=== PATIENT | female | born 1955 ===

== ENCOUNTER 2018-06-22 22:37 | Inpatient (IN) | payer MEDICARE, MEDICAID ==
--- NOTE | 2018-06-23 01:14 | ED PDOC ---
HPI: Psych/Substance Abuse Time Seen by Provider: 06/22/18 23:22 Chief Complaint (Nursing): Psychiatric Evaluation Chief Complaint (Provider): Psychiatric Evaluation History Per: Patient History/Exam Limitations: no limitations Onset/Duration Of Symptoms: Days (x 1 month) Current Symptoms Are (Timing): Still Present Suicide/Self Injury Attempted (Context): None Associated Symptoms: Anxiety, Depression Additional Complaint(s): 63 year old female with a history of diabetes and hypertension presents to the ED with depression for 1 month. Patient reports feelings of hopelessness. Dr. Topete, her PMD, referred her to the ED for worsening depression. She denies active suicidal plan, but she wants her life to end. Also denies auditory and visual hallucinations. PMD: Dr. Duc Topete Past Medical History Reviewed: Historical Data, Nursing Documentation, Vital Signs Vital Signs: Last Vital Signs Temp 97.9 F 06/22/18 23:12 Pulse 95 H 06/22/18 23:12 Resp 18 06/22/18 23:12 BP 123/77 06/22/18 23:12 Pulse Ox 98 06/22/18 23:12 - Medical History PMH: Anemia, Anxiety, Arthritis, Depression, Gastritis, HTN, Hypercholesterolemia, Mitral Valve Prolapse, Pancreatitis Denies: CHF, COPD, HIV, Hypothyroidism, Chronic Kidney Disease, Rheumatoid Arthritis - Surgical History Surgical History: Appendectomy - Family History Family History: States: Unknown Family Hx - Home Medications Home Medications: Ambulatory Orders Medication Instructions Recorded RX: Atorvastatin [Lipitor] 20 mg PO HS 04/11/17 RX: Losartan [Cozaar] 50 mg PO DAILY 04/11/17 RX: MetFORMIN [glucoPHAGE] 1,000 mg PO BID 04/11/17 RX: Venlafaxine HCl [Venlafaxine 150 mg PO BID 04/11/17 HCl ER] RX: cycloSPORINE [Restasis] 1 drop BOTHEYES Q12H 04/11/17 RX: Multivitamin [Multi-Vitamin 1 tab PO DAILY 04/16/17 Daily] Dulaglutide [Trulicity] 1.5 mg SC QWK 06/23/18 - Allergies Allergies/Adverse Reactions: Allergies Allergy/AdvReac Type Severity Reaction Status Date / Time codeine Allergy RASH Verified 06/23/18 03:11 morphine Allergy RASH Verified 06/23/18 03:11 Penicillins Allergy RASH Verified 06/23/18 03:11 Review of Systems ROS Statement: Except As Marked, All Systems Reviewed And Found Negative Psych: Positive for: Anxiety, Depression. Negative for: Suicidal ideation, Other (hallucinations) Physical Exam - Reviewed Nursing Documentation Reviewed: Yes Vital Signs Reviewed: Yes - Physical Exam Appears: Positive for: No Acute Distress (tearful ) Head Exam: Positive for: ATRAUMATIC, NORMAL INSPECTION, NORMOCEPHALIC Skin: Positive for: Normal Color, Warm, Dry Eye Exam: Positive for: EOMI, Normal appearance, PERRL Neck: Positive for: Normal, Painless ROM, Supple Cardiovascular/Chest: Positive for: Regular Rate, Rhythm. Negative for: Murmur Respiratory: Positive for: Normal Breath Sounds. Negative for: Wheezing, Respiratory Distress Gastrointestinal/Abdominal: Positive for: Normal Exam, Soft. Negative for: Tenderness Extremity: Positive for: Normal ROM (x 4). Negative for: Deformity Neurologic/Psych: Positive for: Alert, Oriented, Mood/Affect (anxious and labile ) - Laboratory Results Result Diagrams: 06/23/18 01:21 06/23/18 01:21 - ECG O2 Sat by Pulse Oximetry: 98 (RA) Pulse Ox Interpretation: Normal Medical Decision Making Medical Decision Makin:29 Impression: 63 year old female with worsening depression Initial Plan: --CBC --CMP --UDS --UA --Urine dip --Alcohol --EKG --Crisis 02:50 --Patient was evaluated by crisis and will be admitted as inpatient for further observation and treatment. Diagnosis is depression as per Dr. Moody. Scribe Attestation: Documented by Dorothy Camacho, acting as a scribe for Landry Shaffer MD Provider Scribe Attestation: All medical record entries made by the Scribe were at my direction and personally dictated by me. I have reviewed the chart and agree that the record accurately reflects my personal performance of the history, physical exam, medical decision making, and the department course for this patient. I have also personally directed, reviewed, and agree with the discharge instructions and disposition. Disposition - Clinical Impression Clinical Impression: Depression - Patient ED Disposition Is Patient to be Admitted: Yes - Disposition Disposition Time: 02:50 Condition: FAIR - Pt Status Changed To: Hospital Disposition Of: Inpatient - Admit Certification Admit to Inpatient:: After my assessment, the patient will require hospitalization for at least two midnights. This is because of the severity of symptoms shown, intensity of services needed, and/or the medical risk in this patient being treated as an outpatient.
[2018-06-23 01:24] LABS: BASO % 0.5 % (0.0-2.0); EOS # 0.1 K/uL (0.0-0.7); EOS % 1.4 % (0.0-4.0); HEMOGLOBIN 12.4 g/dL (12.0-16.0); LYMPH # 2.5 K/uL (1.0-4.3); LYMPH % 33.5 % (20.0-40.0); MEAN CELL VOLUME 89.6 fl (81.0-99.0); MEAN CORPUSCULAR HEMOGLOBIN 29.8 pg (27.0-31.0); MEAN CORPUSCULAR HGB CONC 33.3 g/dL (33.0-37.0); MONO # 0.7 K/uL (0.0-0.8); MONO % 9.4 % (0.0-10.0); NEUT # 4.2 K/uL (1.8-7.0); NEUT % 55.2 % (50.0-75.0); RBC 4.16 Mil/uL (3.80-5.20); RED CELL DISTRIBUTION WIDTH 14.8 % (11.5-14.5); WHITE BLOOD COUNT 7.6 K/uL (4.8-10.8)
[2018-06-23 01:32] LABS: URINE BILIRUBIN NEGATIVE (NEGATIVE); URINE BLOOD NEGATIVE (NEGATIVE); URINE CLARITY SLIGHTY-CLOUDY (Clear); URINE COLOR YELLOW (YELLOW); URINE GLUCOSE (UA) NEG (Normal); URINE LEUKOCYTE ESTERASE NEG Leu/uL (Negative); URINE PROTEIN 30 mg/dL (NEGATIVE); URINE UROBILINOGEN 0.2-1.0 mg/dL (0.2-1.0)
[2018-06-23 01:33] LABS: ALB/GLOB RATIO 1.4 (1.0-2.1); ALBUMIN 4.2 g/dL (3.5-5.0); ALT/SGPT 39 U/L (9-52); AST/SGOT 38 U/L (14-36); BLOOD UREA NITROGEN 21 mg/dl (7-17); CALCIUM 9.5 mg/dL (8.4-10.2); GFR NON-AFRICAN AMERICAN 56
[2018-06-23 01:42] LABS: BARBITURATES, UR NEGATIVE (NEGATIVE); BENZODIAZEPINES, UR POSITIVE (NEGATIVE); OPIATES, UR NEGATIVE (NEGATIVE); PHENCYCLIDINE, UR NEGATIVE (NEGATIVE)
[2018-06-23 03:40] VITALS: O2SAT 98
[2018-06-23] MEDS ORDERED: Bismuth Subsalicylate 262 mg/15 ml Sus (240 ml) PO PRN (04:00)
[2018-06-23] MEDS ORDERED: Magnesium Hydroxide Susp 30 ml UD PO PRN (04:00)
--- NOTE | 2018-06-23 05:21 | PCM.BM ---
<Americo Ahuja - Last Filed: 06/23/18 05:19> Treatment Plan Problems - Problems identified on initial assessmt Hopelessness/Helplessness Date Initiated: 06/23/18 Time Initiated: 05:20 Assessment reference: NA Status: Active Treatment assets and liabiliti Patient Assests: adapts well, cooperative, good support system, negotiates basic needs Patient Liabilities: medical problems, other - Milieu Protocol Maintain good personal hygiene: daily Encourage regular showers, daily Remind patient to perform daily oral care, daily Assist patient to perform ADL's Conduct patient checks and document Observation sheet: Q15 minutes Maintain personal safety: every shift Educate patient to report safety concerns to staff, every shift Monitor environment for contraband/sharps Medication safety: Monitor for expected outcome, potential side effects: every shift, Assess barriers to learning: every shift, Assess readiness for medication education: every shift <Akila Moody - Last Filed: 06/23/18 09:55> - Diagnosis (1) Major depressive disorder Status: Acute Interventions: Medication management, Individual and group therapy, Psychoeducation 06/23/18 09:55 <Prerna Wright - Last Filed: 06/23/18 15:26> Family Contact Family involvement: Patient does not wish Family/SO involvement - Goals for Treatment Patient goals for treatment: Pt to be encouraged to attend activity and clinical groups 3-5x per week to identify at least 2 contributing factors to depression and suicide attempt. Psycho-education to be provided to patient/family regarding benefits of medications and treatment adherence. Pt to be encouraged to participate in group milieu to develop effective coping skills to reduce depression and free of suicide ideation. Coordinate discharge resource needs by providing referral for psychiatric treatment follow up in the community. Discharge/Continuing Care - Education Needs Education Needs: Patient Medication, Patient Diagnosis/Disease Process, Patient Coping Skills, Patient Community resources, Patient Activities of Daily Living, Patient Health Practices/Safety, Patient Personal Hygiene/Grooming, Patient Aftercare Safety Plan - Discharge Discharge Criteria: Tolerates medication w/o severe side effects, Free of Suicidal thoughts, Normal sleep pattern, Ability to care for self, Reduction of target symptoms, Other (Free of Depressive Symptoms) Discharge to:: Home, With Family - Additional Comments 06/23/18 15:21 Pt seen and discussed in team meeting. Reason for hospitalization reviewed and discussed. Pt reported being referred to the ED due worsened depression and anxiety. Pt reported crying episodes, lack of initiation and motivation, and easily irritable. Pt reported feeling lonely; although she has a relationship with her family. Pt reported she feels as if her children do not like her and do not care about her. Pt reported AH telling her "not do it and then a funny voice." Pt described the voice as a child voice, unknown to pt it's telling her "you need to be with your mother." Pt reported her mother is . Pt reported she last experienced AH on Thursday. Pt denied acute SI and HI; however, reported passive wishes stating "i only think to meet my mother when i'm in those moods." Pt reported hx of 2 prior suicide attempts. Pt reported she is no linked to a psychiatrist at the present time and seeks tx with PMD, Dr. Yoselyn MD. Pt's social and medical issues reviewed. Pt's medications reviewed. Tx plan reviewed and pt verbalized agreement. SW to continue to follow case and obtain collateral information. - Treatment Team Participation Discussed with Family/SO: No Was Patient/Family/SO present at Treatment Team Meeting: Yes
--- NOTE | 2018-06-23 07:04 | CARD ---
APPROVED REPORT Date of service: 06/23/2018 EKG Measurement Heart [id number] <Conclusion> Normal sinus rhythm with sinus arrhythmia Normal ECG
--- NOTE | 2018-06-23 08:33 | RAD ---
Date of service: 06/23/2018 HISTORY: admit COMPARISON: No prior. FINDINGS: LUNGS: No active pulmonary disease. PLEURA: No significant pleural effusion identified, no pneumothorax apparent. CARDIOVASCULAR: No aortic atherosclerotic calcification present. Mild tortuosity of the thoracic aorta. Normal cardiac size. No pulmonary vascular congestion. OSSEOUS STRUCTURES: Thoracic spondylosis. Bilateral shoulder arthrosis. VISUALIZED UPPER ABDOMEN: Normal. OTHER FINDINGS: None. IMPRESSION: No acute cardiopulmonary pathology suspect.
[2018-06-23 08:39] LABS: IRON 66 ug/dL (37-170)
[2018-06-23 08:48] LABS: % IRON SATURATION 16 % (20-55); TOTAL IRON BINDING CAPACITY 408 ug/dL (250-450)
[2018-06-23 08:59] LABS: T4 6.44 ug/dl (5.5-11.0)
--- NOTE | 2018-06-23 09:55 | PCM.PSYCH ---
Initial Psychiatric Evaluation - Initial Psychiatric Evaluation Type of Admission: Voluntary Legal Status: Capacity Chief Complaint (in patient's own words): "I'm depressed." Patient's Reaction to Hospitalization: HPI: 63 yo [place] female, w/ h/o depression, presents w/ worsening depression, auditory hallucinations of a child telling her "you need to be with your mother ()", intermittent suicidal ideation w/o plan, sleep/appetite dis turbances, anhedonia, hopelessness and low motivation. PPHx: H/o depression and anxiety; taken off of Effexor 300 mg and started on Lexapro 10 mg Daily 1 week ago. History of 2 suicide attempts by overdoses on medication (19 yrs old, 20s). Receives psychiatric treatment from PMD. PMHx: HTN, HLD, DM, chronic back pain ALL: Codeine, Morphine, PCN SH: From [place], 3 adult children, in 3rd marriage, unemployed on disability, denies drugs/etoh/cig use Current Medications: Active Medications Generic Name Dose Route Start Last Admin Trade Name Freq PRN Reason Stop Dose Admin Acetaminophen 650 mg 06/23/18 04:00 Tylenol 325mg Tab PO Q4 PRN Pain, moderate (4-7) Al Hydrox/Mg Hydrox/Simethicone 30 ml 06/23/18 04:00 Maalox Plus 30 Ml PO Q4 PRN Dyspepsia Atorvastatin Calcium 20 mg 06/23/18 22:00 Lipitor PO HS LEYLA Bismuth Subsalicylate 524 mg 06/23/18 04:00 Pepto-Bismol PO Q4 PRN Diarrhea Home Med 1 drop 06/23/18 08:30 Cyclosporine [Restasis] BOTHEYES Q12H LEYLA Home Med 1.5 mg 06/27/18 09:00 Dulaglutide [Trulicity] SC SUN LEYLA Lorazepam 0.5 mg 06/23/18 04:00 Ativan PO 07/07/18 04:01 HS PRN Insomnia Lorazepam 0.5 mg 06/23/18 04:00 Ativan PO 07/07/18 04:01 Q6 PRN Anixety/Agitation Losartan Potassium 50 mg 06/23/18 09:00 Cozaar PO DAILY LEYLA Magnesium Hydroxide 30 ml 06/23/18 04:00 Milk Of Magnesia PO HS PRN Constipation Metformin HCl 1,000 mg 06/23/18 08:30 Glucophage PO BIDWM [facility] Multivitamins/Minerals 1 tab 06/23/18 09:00 Therapeutic-M Tab PO DAILY [facility] Past Psychiatric History - Past Psychiatric History Pertinent Medical Hx (Current Medical&Sleep Prob, Allergies): Allergies Allergy/AdvReac Type Severity Reaction Status Date / Time codeine Allergy RASH Verified 06/23/18 03:11 morphine Allergy RASH Verified 06/23/18 03:11 Penicillins Allergy RASH Verified 06/23/18 03:11 Atorvastatin [Lipitor] 20 mg PO HS 04/11/17 Losartan [Cozaar] 50 mg PO DAILY 04/11/17 MetFORMIN [glucoPHAGE] 1,000 mg PO BID 04/11/17 Venlafaxine HCl [Venlafaxine HCl ER] 150 mg PO BID 04/11/17 cycloSPORINE [Restasis] 1 drop BOTHEYES Q12H 04/11/17 Multivitamin [Multi-Vitamin Daily] 1 tab PO DAILY 04/16/17 Dulaglutide [Trulicity] 1.5 mg SC QWK 06/23/18 Review of Systems - Psychiatric Psychiatric: As Per HPI, Abnormal Sleep Pattern, Anhedonia, Anxiety, Auditory Hallucinations, Change in Appetite, Depression, Difficulty Concentrating, Hallucinations, Hopelessness, Irritability, Mood Swings, Panic Attacks, Suicidal Ideation Mental Status Examination - Personal Presentation Personal Presentation: Looks stated age - Affect Affect: Depressed, Other (Tearful) - Motor Activity Motor Activity: Calm - Reliability in Providing Information Reliability in Providing Information: Fair - Speech Speech: Organized - Mood Mood: Depressed, Anxious - Formal Thought Process Formal Thought Process: No Impairment - Obsessions/Compulsions Obsessions: No Compulsions: No - Cognitive Functions Orientation: Person, Place, Situation, Time Sensorium: Alert Attention/Concentration: Attentive Estimate of Intelligence: Average Judgement: Intact, as evidence by: Insight regarding need for hospitalization Memory: Recent intact, as evidence by: Ability to recall events of the day, Remote intact, as evidenced by: Abilit to recall sig. life events, Remote intact, as evidenced by: Ability to recall historical events - Risk Risk: Suicidal, Diminished functioning - Strength & Assets Inventory Strength & Assets Inventory: Family support, Cooperative DSM 5 DX - DSM 5 DSM 5 Diagnosis: Major Depressive Disorder w/ Psychotic Features; Generalized Anxiety Disorder - Recommended/Plan of Treatment Treatment Recommendations and Plan of Treatment: Major Depressive Disorder w/ Psychotic Features; Generalized Anxiety Disorder -Admit to psychiatry unit -Continue Lexapro 10 mg PO Daily -Start Risperdal 0.5 mg PO HS -Medicine consult -Disposition planning -Individual and group therapy Projected ELOS: 5-7 days Discharge Plan and Discharge Criteria: Discharge when patient is psychiatrically stable - Smoking Cessation Smoking Cessation Initiated: No Reason for not providing: Not indicated
[2018-06-23] MEDS: Multivitamin With Minerals Tab PO SCH (11:39)
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
[2018-06-23] MEDS: Patient's Own Med (Cyclosporine [Restasis] 1 DROP) BOTHEYES SCH ×2 (12:19→21:14)
[2018-06-23 19:05] LABS: FOLATE 12.8 ng/mL
[2018-06-23] MEDS: Latanoprost 0.005% Opht SOUTION OU SCH (22:21)
[2018-06-23] MEDS: Alum-Mag Hydrox-Simethicone Susp (30 mL) PO PRN (22:44)
[2018-06-24] MEDS: Patient's Own Med (Cyclosporine [Restasis] 1 DROP) BOTHEYES SCH ×2 (08:08→21:07)
[2018-06-24] MEDS: Multivitamin With Minerals Tab PO SCH (08:09)
--- NOTE | 2018-06-24 09:50 | PCM.PYCHPN ---
Psychiatric Progress Note - Psychiatric Progress Note Patient seen today, length of contact: Pt evaluated, case discussed w/ team, chart reviewed Patient Chief Complaint: "I'm depressed." Problems Identified/Issues Discussed: Pt continues to report feeling depressed, fatigue, poor energy/ poor motivation and continued intermittent suicidal ideation w/o current plan or intent. No current AH/VH/paranoia/delusions. Medication Change: No Medical Record Reviewed: Yes Consults ordered or reviewed: Medicine consult Mental Status Examination - Cognitive Function Orientation: Person, Place, Situation, Time Memory: Intact Attention: WNL Concentration: WNL Association: WN Fund of Knowledge: [facility] Decription of patient's judgement and insights: Fair I/J - Mood Mood: Depressed, Anxious - Affect Affect: Depressed, Other (Tearful) - Speech Speech: Appropriate - Formal Thought Process Formal Thought Process: No Impairment Psychotic Thoughts and Behaviors: NO AH/VH/paranoia/delusions - Suicidal Ideation Suicidal Ideation: Yes - Homicidal Ideation Homicidal Ideation: No Goal/Treatment Plan - Goal/Treatment Plan Need for Continued Stay: Remain at risks for inpatient hospitalization, Severe depression anxiety Progress Toward Problem(s) and Goals/Treatment Plan: Major Depressive Disorder w/ Psychotic Features; Generalized Anxiety Disorder -Continue Lexapro 10 mg PO Daily -Continue Risperdal 0.5 mg PO HS -Medicine consult -Disposition planning -Individual and group therapy Estimated Date of D/C: 06/28/18
[2018-06-24] MEDS: Alum-Mag Hydrox-Simethicone Susp (30 mL) PO PRN ×2 (14:38→22:47)
[2018-06-24] MEDS: Latanoprost 0.005% Opht SOUTION OU SCH (21:08)
[2018-06-25] MEDS: Patient's Own Med (Cyclosporine [Restasis] 1 DROP) BOTHEYES SCH ×2 (08:29→19:40)
[2018-06-25] MEDS: Multivitamin With Minerals Tab PO SCH (08:30)
--- NOTE | 2018-06-25 12:02 | PCM.PYCHPN ---
Psychiatric Progress Note - Psychiatric Progress Note Patient seen today, length of contact: Pt evaluated, case discussed w/ team, chart reviewed Patient Chief Complaint: "I'm depressed." Problems Identified/Issues Discussed: Pt continues to report feeling depressed, w/ fatigue, poor energy/ poor motivation, but denies acute AH/VH/SI/HI. No adverse effects to medications reported. Medication Change: No Medical Record Reviewed: Yes Consults ordered or reviewed: Medicine consult Mental Status Examination - Cognitive Function Orientation: Person, Place, Situation, Time Memory: Intact Attention: WNL Concentration: WNL Association: WNL Fund of Knowledge: [facility] Decription of patient's judgement and insights: Fair I/J - Mood Mood: Depressed, Anxious - Affect Affect: Depressed - Speech Speech: Appropriate - Formal Thought Process Formal Thought Process: No Impairment Psychotic Thoughts and Behaviors: NO AH/VH/paranoia/delusions - Suicidal Ideation Suicidal Ideation: No - Homicidal Ideation Homicidal Ideation: No Goal/Treatment Plan - Goal/Treatment Plan Need for Continued Stay: Remain at risks for inpatient hospitalization, Severe depression anxiety Progress Toward Problem(s) and Goals/Treatment Plan: Major Depressive Disorder w/ Psychotic Features; Generalized Anxiety Disorder -Continue Lexapro 10 mg PO Daily -Continue Risperdal 0.5 mg PO HS -Medicine consult -Disposition planning -Individual and group therapy Estimated Date of D/C: 06/28/18
[2018-06-25] MEDS: Alum-Mag Hydrox-Simethicone Susp (30 mL) PO PRN ×2 (12:15→22:15)
[2018-06-25] MEDS ORDERED: Pantoprazole 40 mg EC Tab PO SCH (12:30)
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
[2018-06-25] MEDS: Naproxen 500 MG TAB PO SCH (16:49)
[2018-06-25] MEDS: Latanoprost 0.005% Opht SOUTION OU SCH (21:09)
[2018-06-25] MEDS: Pantoprazole 40 mg EC Tab PO SCH (21:10)
[2018-06-26] MEDS: Patient's Own Med (Cyclosporine [Restasis] 1 DROP) BOTHEYES SCH ×2 (08:47→20:30)
[2018-06-26] MEDS: Naproxen 500 MG TAB PO SCH ×2 (08:50→21:00)
[2018-06-26] MEDS: Pantoprazole 40 mg EC Tab PO SCH ×2 (08:51→16:42)
[2018-06-26] MEDS: Multivitamin With Minerals Tab PO SCH (08:51)
--- NOTE | 2018-06-26 09:46 | PCM.PYCHPN ---
Psychiatric Progress Note - Psychiatric Progress Note Patient seen today, length of contact: Pt evaluated, case discussed w/ team, chart reviewed Patient Chief Complaint: pt has remained depressed and withdrawn and with c/o fatigue and remains with poor insight and in need of further stabilization. Medication Change: No Medical Record Reviewed: Yes Mental Status Examination - Cognitive Function Orientation: Person, Place, Situation, Time Memory: Intact Attention: WNL Concentration: WNL Association: WNL Fund of Knowledge: WNL - Mood Mood: Depressed, Anxious - Affect Affect: Depressed - Speech Speech: Appropriate - Formal Thought Process Formal Thought Process: No Impairment - Suicidal Ideation Suicidal Ideation: No - Homicidal Ideation Homicidal Ideation: No Goal/Treatment Plan - Goal/Treatment Plan Need for Continued Stay: Remain at risks for inpatient hospitalization, Severe depression anxiety Estimated Date of D/C: 06/28/18
[2018-06-26] MEDS: Latanoprost 0.005% Opht SOUTION OU SCH (21:18)
[2018-06-27] MEDS: Multivitamin With Minerals Tab PO SCH (08:28)
[2018-06-27] MEDS: Patient's Own Med (Cyclosporine [Restasis] 1 DROP) BOTHEYES SCH ×2 (08:28→21:05)
[2018-06-27] MEDS: Naproxen 500 MG TAB PO SCH ×3 (08:34→21:15)
[2018-06-27] MEDS: Pantoprazole 40 mg EC Tab PO SCH ×2 (08:35→17:29)
--- NOTE | 2018-06-27 14:05 | PCM.PYCHPN ---
Psychiatric Progress Note - Psychiatric Progress Note Patient seen today, length of contact: Pt evaluated, case discussed w/ team, chart reviewed Patient Chief Complaint: pt has been still feeling anxious at times and has remained depressed and withdrawn and with c/o fatigue and remains with poor insight and in need of further stabilization. Medication Change: No Medical Record Reviewed: Yes Mental Status Examination - Cognitive Function Orientation: Person, Place, Situation, Time Memory: Intact Attention: WNL Concentration: WNL Association: WNL Fund of Knowledge: WNL - Mood Mood: Depressed, Anxious - Affect Affect: Depressed - Speech Speech: Appropriate - Formal Thought Process Formal Thought Process: No Impairment - Suicidal Ideation Suicidal Ideation: No - Homicidal Ideation Homicidal Ideation: No Goal/Treatment Plan - Goal/Treatment Plan Need for Continued Stay: Remain at risks for inpatient hospitalization, Severe depression anxiety Progress Toward Problem(s) and Goals/Treatment Plan: will continue current regimen of lexapro and risperdal and engage pt in therapy and groups. medical follow up Disposition as per dr miranda Estimated Date of D/C: 06/28/18
[2018-06-27] MEDS: Latanoprost 0.005% Opht SOUTION OU SCH (21:02)
[2018-06-28] MEDS: Patient's Own Med (Cyclosporine [Restasis] 1 DROP) BOTHEYES SCH ×2 (08:46→21:23)
[2018-06-28] MEDS: Pantoprazole 40 mg EC Tab PO SCH ×2 (08:48→17:12)
[2018-06-28] MEDS: Naproxen 500 MG TAB PO SCH ×3 (08:48→21:00)
[2018-06-28] MEDS: Multivitamin With Minerals Tab PO SCH (08:52)
--- NOTE | 2018-06-28 09:35 | PCM.PYCHPN ---
Psychiatric Progress Note - Psychiatric Progress Note Patient seen today, length of contact: Pt evaluated, case discussed w/ team, chart reviewed Patient Chief Complaint: "I'm depressed." Problems Identified/Issues Discussed: Pt reports that her mood is improving gradually, but she continues to be tearful at times, worried about her and has intermittent feelings of depression and anxiety. No AH/VH/SI/HI. Medication Change: Yes (Increase Lexapro) Medical Record Reviewed: Yes Consults ordered or reviewed: Medicine consult Mental Status Examination - Cognitive Function Orientation: Person, Place, Situation, Time Memory: Intact Attention: WNL Concentration: WNL Association: WNL Fund of Knowledge: [facility] Decription of patient's judgement and insights: Improving I/J - Mood Mood: Depressed, Anxious - Affect Affect: Depressed - Speech Speech: Appropriate - Formal Thought Process Formal Thought Process: No Impairment Psychotic Thoughts and Behaviors: No AH/VH/paranoia/delusions - Suicidal Ideation Suicidal Ideation: No - Homicidal Ideation Homicidal Ideation: No Goal/Treatment Plan - Goal/Treatment Plan Need for Continued Stay: Remain at risks for inpatient hospitalization Progress Toward Problem(s) and Goals/Treatment Plan: Major Depressive Disorder w/ Psychotic Features; Generalized Anxiety Disorder -Increase Lexapro -Continue Risperdal 0.5 mg PO HS -Medicine consult -Disposition planning- likely discharge tomorrow if patient continues to improve clinically -Individual and group therapy Estimated Date of D/C: 06/29/18
[2018-06-28] MEDS: Latanoprost 0.005% Opht SOUTION OU SCH (22:03)
[2018-06-29 05:41] VITALS: BP 107/67; PULSE 71; RESP 17; TEMP 98.1
--- NOTE | 2018-06-29 08:20 | PCM.PYCHDC ---
Mental Status Examination - Mental Status Examination Orientation: Person, Place, Situation, Time Memory: Intact Mood: Neutral Affect: Broad Speech: Appropriate Attention: WNL Concentration: WNL Association: WNL Fund of Knowledge: WNL Formal Thought Process: No Impairment Description of patient's judgement and insight: Fair I/J Psychotic Thoughts and Behaviors: No AH/VH/paranoia/delusions Suicidal Ideation: No Current Homicidal Ideation?: No Discharge Summary - Discharge Note Reason for Hospitalization: HPI: 63 yo [place] female, w/ h/o depression, presents w/ worsening depression, auditory hallucinations of a child telling her "you need to be with your mother ()", intermittent suicidal ideation w/o plan, sleep/appetite disturbances, anhedonia, hopelessness and low motivation. PPHx: H/o depression and anxiety; taken off of Effexor 300 mg and started on Lexapro 10 mg Daily 1 week ago. History of 2 suicide attempts by overdoses on medication (19 yrs old, 20s). Receives psychiatric treatment from D. PMHx: HTN, HLD, DM, chronic back pain ALL: Codeine, Morphine, PCN SH: From [place], 3 adult children, in 3rd marriage, unemployed on disability, denies drugs/etoh/cig use Laboratory Data: Abnormal Lab Results 06/28/18 06/29/18 15:40 05:20 POC Glucose (mg/dL) 102 91 Consultations:: List each consultation separately and include: 1. Reason for request. 2. Findings. 3. Follow-up Consultations: Medicine consult Summary of Hospital Course include:: 1. Description of specific treatment plan utilized for patients during their course of treatmen. 2. Summarize the time- course for resolution of acute symptoms and/or regressed behaviors. 3. Describe issues identified and worked on during hospitalization. 4. Describe medication utilized. 5. Describe medical problems identified and treated. 6. Reassessment of suicide risk Summary of Hospital Course: Patient was admitted to the psychiatry unit. Individual and group therapy were provided. Patient was stabilized on Lexapro and Risperdal. Patient denies acute depression/anxiety/AH/VH/paranoia/delusions. She is currently psychiatrically stable. Psychoeducation provided on the importance of outpatient psychotherapy. - Diagnosis (1) Major depressive disorder Current Visit: Yes Status: Chronic - Final Diagnosis (DSM 5) Condition upon Discharge: STABLE DSM 5: Major Depressive Disorder Disposition: HOME/ ROUTINE Follow-up Treatment Plan: Major Depressive Disorder w/ Psychotic Features; Generalized Anxiety Disorder -Continue Lexapro, Risperdal and Trazodone Prescriptions/Medication Reconciliation: Escitalopram [Lexapro] 20 mg PO DAILY #30 tab risperiDONE [RisperDAL Tab] 0.5 mg PO HS #30 tab traZODone [Desyrel] 50 mg PO HS PRN #30 tab PRN Reason: Insomnia - Smoking Cessation Smoking Cessation Medication prescribed: No Reason for not providing: Not indicated - Antipsychotic Medications Pt discharged on 2 or more routine antipsychotic medications: No
[2018-06-29] MEDS: Patient's Own Med (Cyclosporine [Restasis] 1 DROP) BOTHEYES SCH (08:54)
[2018-06-29] MEDS: Pantoprazole 40 mg EC Tab PO SCH (08:55)
[2018-06-29] MEDS: Multivitamin With Minerals Tab PO SCH (08:56)
[2018-06-29] MEDS: Naproxen 500 MG TAB PO SCH (08:56)
--- NOTE | 2018-06-29 13:34 | PN ---
DATE: 06/29/2018 SUBJECTIVE: The patient seen for Dr. Topete while he is away. The patient feels okay. Denies any specific medical complaints. No chest pain. No shortness of breath. PHYSICAL EXAMINATION: GENERAL: The patient is in no acute distress. VITAL SIGNS: Stable. HEART: S1 and S2, normal and regular. LUNGS: Good bilateral air exchange. ABDOMEN: Soft, nontender. EXTREMITIES: No edema. No calf swelling. No tenderness. No acute ischemia. CENTRAL NERVOUS SYSTEM: Essentially unchanged. LABORATORY DATA: Available diagnostic data reviewed. ASSESSMENT AND PLAN: Patient is medically stable for discharge. The patient was advised to follow up with Dr. Topete within one week. Plan as ordered. Rasheed Bonilla MD
== END 2018-06-29 11:30 | disposition home or self-care (01) | DRG 885 ==
LOC: H.ER 22:37 → H.ERHOLD 06-23 02:50 → H.STEP 06-23 03:55 → UNDODISIN 06-29 11:35
PROVIDERS: ADMIT Psychiatry & Neurology Psychiatry; ATTEND Psychiatry & Neurology Psychiatry
PROC: GZHZZZZ Group Psychotherapy (ICD-10-PCS; principal; 2018-06-23)
PROC: GZ51ZZZ Individual Psychotherapy, Behavioral (ICD-10-PCS; 2018-06-23)
PROC: GZ56ZZZ Individual Psychotherapy, Supportive (ICD-10-PCS; 2018-06-23)
DX: F32.3 Major depressive disorder, single episode, severe with psychotic features (principal); R45.851 Suicidal ideations; F41.1 Generalized anxiety disorder; I10 Essential (primary) hypertension; E78.00 Pure hypercholesterolemia, unspecified; I34.1 Nonrheumatic mitral (valve) prolapse; Z79.899 Other long term (current) drug therapy; Z87.891 Personal history of nicotine dependence; Z90.49 Acquired absence of other specified parts of digestive tract; Z91.5 Personal history of self-harm; D64.9 Anemia, unspecified; G89.29 Other chronic pain; K29.70 Gastritis, unspecified, without bleeding; M19.90 Unspecified osteoarthritis, unspecified site; M54.5 Low back pain; E11.9 Type 2 diabetes mellitus without complications; E78.5 Hyperlipidemia, unspecified

== ENCOUNTER 2018-08-11 06:03 | Inpatient (IN) | payer MEDICARE, MEDICAID ==
[2018-08-09 09:27] VITALS: BMI 32.9
[2018-08-11 06:57] LABS: HEMOGLOBIN 11.2 g/dL (12.0-16.0); MEAN CELL VOLUME 91.6 fl (81.0-99.0); MEAN CORPUSCULAR HEMOGLOBIN 29.8 pg (27.0-31.0); MEAN CORPUSCULAR HGB CONC 32.5 g/dL (33.0-37.0); RBC 3.75 Mil/uL (3.80-5.20); RED CELL DISTRIBUTION WIDTH 14.7 % (11.5-14.5); WHITE BLOOD COUNT 7.2 K/uL (4.8-10.8)
[2018-08-11] MEDS ORDERED: Propofol 10 mg/ml Inj (20 ML) ONE (07:30)
[2018-08-11] MEDS ORDERED: Rocuronium 10 mg/ml (5 ml) ONE (07:30)
[2018-08-11] MEDS ORDERED: Succinylcholine 200 mg/10 ml Inj IV ONE (07:31)
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
[2018-08-11] MEDS ORDERED: Thrombin Topical 5,000 Int Units Spray Kit ONE (07:43)
[2018-08-11] MEDS ORDERED: Lactated Ringer's 1,000 ML IV ONE ×2 (07:50→13:28)
[2018-08-11] MEDS ORDERED: Midazolam 2 MG/2 ML VIAL ONE (07:58)
[2018-08-11] MEDS ORDERED: ePHEDrine 50 mg/ml Inj ONE (08:18)
[2018-08-11] MEDS ORDERED: HEMOSTATIC MATRIX 10 ML DIS.NEEDLE TOP ONE (08:45)
[2018-08-11] MEDS ORDERED: Neostigmine 1:1000 (1 mg/ml) Inj ONE (08:46)
[2018-08-11] MEDS: HYDROmorphone 0.5 mg/0.5 ml ISec IVP PRN ×3 (09:55→11:15)
--- NOTE | 2018-08-11 10:45 | PCM.SURG1 ---
Surgeon's Initial Post Op Note - Surgeon's Notes Surgeon: Klaus Cordova MD Regional Tele[employer] Specialist: Silas Correia PA-C Type of Anesthesia: General Endo Anesthesia Administered By: Jennifer DAWSON Pre-Operative Diagnosis: Cervical spondylosis Operative Findings: Please see complete operative note Post-Operative Diagnosis: as above Operation Performed: Anterior cervical discectomy and fusion C5-C6 Specimen/Specimens Removed: none Estimated Blood Loss: EBL {In ML}: 10 Blood Products Given: N/A Drains Used: Jeovanny Mattson Date of Surgery/Procedure: 08/11/18 Time of Surgery/Procedure: 08:15
[2018-08-11] MEDS ORDERED: Patient's Own Med (Cyclosporine [Restasis] 1 DROP) BOTHEYES SCH (14:00)
--- NOTE | 2018-08-11 14:42 | RAD ---
Date of service: 08/11/2018 PROCEDURE: Intraoperative Fluoroscopy. HISTORY: FLU FINDINGS: Fluoroscopic assistance was provided. Fluoroscopy time = 5.6 sec. Radiation dose = 0.65 mGy. Please refer to the operative report from MARSHA Guy.
[2018-08-11] MEDS: Clindamycin 600mg/50ml D5W 600 MG/50 ML VIAL IVPB SCH (16:22)
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
[2018-08-11] MEDS ORDERED: DiphenhydrAMINE 50 mg/ml Inj IVP STA ×2 (16:57→20:07)
[2018-08-11] MEDS: Sodium Chloride 0.9% 1,000 ML IV SCH (19:06)
[2018-08-11] MEDS: Lactated Ringer's 1,000 ML IV SCH (21:11)
[2018-08-11] MEDS: Latanoprost 0.005% Opht SOUTION OU SCH (21:13)
[2018-08-12] MEDS: Clindamycin 600mg/50ml D5W 600 MG/50 ML VIAL IVPB SCH ×2 (00:29→09:03)
--- NOTE | 2018-08-12 02:20 | OP ---
PROCEDURE DATE: 08/11/2018 PREOPERATIVE DIAGNOSIS: Cervical spondylosis with myelopathy. POSTOPERATIVE DIAGNOSIS: Cervical spondylosis with myelopathy. PROCEDURE: Partial vertebrectomy of C5 and C6, diskectomy of C5-C6, interbody fusion of C5-C6 using PEEK and bone, plating and instrumentation of C5-C6 using Amendia spinal element plate. SURGEON: Klaus Cordova MD ELECTRIC SERVICEMAN: Silas Correia, physician web press operator assistant, who helped me in performing the surgery and who stayed throughout the case from the beginning to the end. DESCRIPTION OF PROCEDURE: The patient was brought to the operating room and after general endotracheal anesthesia, placed in a supine position. Head was placed on a donut. Care was taken to protect all the pressure points. Right side of the neck was thoroughly prepped and draped in a same sterile manner after marking the skin incisions for cervical vertebrectomy. After prepping and draping the area, skin has been incised. Bleeding skin has been controlled with bipolar water main installer helper. Using a Bovie water main installer helper, platysma has been cut. Dissection has been carried out between the trachea and esophagus medially and sternomastoid carried out laterally. Prevertebral fascia has been cauterized and cut. Identification of levels has been done with the help of fluoroscopy. Longus colli has been detached, attachment of vertebral bodies of C5 and C6. Dyonics retractor has been applied. Rest of the operation has been carried out under microscopic examination. PARTIAL VERTEBRECTOMY OF C5 and C6 AND DISKECTOMY OF C5-C6: By using a high-speed drill, the vertebral bodies of C5-C6 have been drilled. Drilling was continued posteriorly. Intermittently, diskectomy has been performed. Partial vertebrectomy including removal of the cartilage and plate has been performed. After the diskectomy, posterior longitudinal ligament has been opened. Dura has been decompressed from side to side. INTERBODY FUSION OF C5-C6 USING PEEK AND BONE: PEEK implant has been brought in and filled with demineralized bone. It was gently tapped into space creating a partial vertebrectomy of C5-C6. Position had been confirmed to be good. PLATING AND INSTRUMENTATION FROM C5 TO C6 USING AN AMENDIA SPINAL ELEMENT PLATE: The Amendia spinal element plate has been placed at vertebral bodies of C5-C6 by using 12-mm screw. It has been secured under fluoroscopic-guided control. After that, hemostasis was best achieved. Jeovanny drain was placed in the wound and brought out through a separate stab neck skin incision. Platysma was closed with a 3-0 Vicryl. Skin has been closed with intradermal 3-0 Vicryl stitches. The patient tolerated the procedure well. After the procedure, she was mobilized to the recovery room in stable condition. Klaus Cordova MD
[2018-08-12] MEDS ORDERED: DiphenhydrAMINE 50 mg/ml Inj IVP STA ×2 (02:33→14:01)
[2018-08-12] MEDS: Sodium Chloride 0.9% 1,000 ML IV SCH (04:26)
[2018-08-12 05:51] LABS: HEMOGLOBIN 10.2 g/dL (12.0-16.0); MEAN CELL VOLUME 90.3 fl (81.0-99.0); MEAN CORPUSCULAR HEMOGLOBIN 29.8 pg (27.0-31.0); RBC 3.44 Mil/uL (3.80-5.20); RED CELL DISTRIBUTION WIDTH 14.8 % (11.5-14.5); WHITE BLOOD COUNT 8.9 K/uL (4.8-10.8)
[2018-08-12 06:11] LABS: BLOOD UREA NITROGEN 18 mg/dl (7-17); CALCIUM 8.6 mg/dL (8.4-10.2); GFR NON-AFRICAN AMERICAN > 60
[2018-08-12] MEDS: Lactated Ringer's 1,000 ML IV SCH ×2 (06:25→16:58)
[2018-08-12] MEDS ORDERED: DiphenhydrAMINE 50 mg/ml Inj IVP SCH (09:00)
[2018-08-12] MEDS: Multivitamin With Minerals Tab PO SCH (09:02)
[2018-08-12] MEDS ORDERED: DiphenhydrAMINE 50 mg/ml Inj IVP PRN (09:23)
--- NOTE | 2018-08-12 10:23 | CP.PCM.PN ---
Subjective - Date & Time of Evaluation Date of Evaluation: 08/12/18 Time of Evaluation: 08:00 - Subjective Subjective: Patient seen and examined at bedside comfortable. Pain is well controlled. Radicular/paresthesia symptoms have improved postop. C/o throat soreness and hoarseness, improving. Denies CP/SOB/dysphagia/fever. Objective - Vital Signs/Intake and Output Vital Signs (last 24 hours): Temp Pulse Resp BP Pulse Ox 98.1 F 83 20 118/76 100 08/12/18 08:21 08/12/18 09:01 08/12/18 08:21 08/12/18 09:01 08/12/18 08:21 - Medications Medications: Current Medications Atorvastatin Calcium (Lipitor) 20 mg PO HS [facility] Last Admin: 08/11/18 21:12 Dose: 20 mg Cyclobenzaprine HCl (Flexeril) 10 mg PO Q8 PRN PRN Reason: Muscle spasm Diphenhydramine HCl (Benadryl) 25 mg IVP Q4 PRN PRN Reason: Itching / Pruritus Docusate Sodium (Colace) 100 mg PO BID [facility] Last Admin: 08/12/18 09:01 Dose: 100 mg Escitalopram Oxalate (Lexapro) 20 mg PO DAILY [facility] Last Admin: 08/12/18 09:02 Dose: 20 mg Home Med (Cyclosporine [Restasis]) 1 drop BOTHEYES Q12H [facility] Hydromorphone HCl (Dilaudid) 2 mg IVP Q4 PRN PRN Reason: Pain, moderate (4-7) Last Admin: 08/12/18 00:39 Dose: 2 mg Hydromorphone HCl (Dilaudid) 0.5 mg PO Q4 PRN PRN Reason: Pain, severe (8-10) Lactated Ringer's (Lactated Ringer's) 1,000 mls @ 100 mls/hr IV .Q10H [facility] Last Admin: 08/12/18 06:25 Dose: 100 mls/hr Latanoprost (Xalatan Opht) 1 drop OU HS [facility] Last Admin: 08/11/18 21:13 Dose: 1 drop Loratadine (Claritin) 10 mg PO DAILY [facility] Last Admin: 08/12/18 10:12 Dose: 10 mg Losartan Potassium (Cozaar) 50 mg PO DAILY [facility] Last Admin: 08/12/18 09:01 Dose: 50 mg Multivitamins/Minerals (Therapeutic-M Tab) 1 tab PO DAILY [facility] Last Admin: 08/12/18 09:02 Dose: 1 tab Ondansetron HCl (Zofran Inj) 4 mg IVP ONCE PRN PRN Reason: Nausea/Vomiting Risperidone (Risperdal Tab) 0.5 mg PO HS [facility] Last Admin: 08/11/18 21:12 Dose: 0.5 mg Trazodone HCl (Desyrel) 50 mg PO HS PRN PRN Reason: Insomnia - Labs Labs: 08/12/18 05:05 08/12/18 05:05 - Neck Exam Additional comments: Dressings CDI MISA drain intact with mild bloody drainage ( 40cc in 24 hrs) sensation and motor intact MN/UN/RN neg clonus - Neurological Exam Neurological Exam: Alert, Awake, CN II-XII Intact, Oriented x3 Assessment and Plan (1) Cervical spondylosis Assessment & Plan: POD#1 s/p C5-6 ACDF doing well -pain control -care as per medical team -PT/OT -monitor drain output, possible removal tomorrow -above d/w Dr. Cordova in agreement Status: Acute
--- NOTE | 2018-08-12 10:23 | CP.PCM.PN ---
<Aliza Gardner - Last Filed: 08/12/18 10:19> Subjective - Date & Time of Evaluation Date of Evaluation: 08/12/18 Time of Evaluation: 07:50 - Subjective Subjective: Pt seen/discussed with Dr. Bonilla this morning. POD 1 after anterior cervical discectomy by Dr. Cordova. Overnight, pt experienced some itchy skin; was medicated with benadryl with relief. States she has allergies at times. Otherwise no acute events overnight, not in acute distress. Has anterior MISA drain. Objective - Vital Signs/Intake and Output Vital Signs (last 24 hours): Temp Pulse Resp BP Pulse Ox 98.1 F 83 20 118/76 100 08/12/18 08:21 08/12/18 09:01 08/12/18 08:21 08/12/18 09:01 08/12/18 08:21 - Medications Medications: Current Medications Atorvastatin Calcium (Lipitor) 20 mg PO HS [facility] Last Admin: 08/11/18 21:12 Dose: 20 mg Cyclobenzaprine HCl (Flexeril) 10 mg PO Q8 PRN PRN Reason: Muscle spasm Diphenhydramine HCl (Benadryl) 25 mg IVP Q4 PRN PRN Reason: Itching / Pruritus Docusate Sodium (Colace) 100 mg PO BID [facility] Last Admin: 08/12/18 09:01 Dose: 100 mg Escitalopram Oxalate (Lexapro) 20 mg PO DAILY [facility] Last Admin: 08/12/18 09:02 Dose: 20 mg Home Med (Cyclosporine [Restasis]) 1 drop BOTHEYES Q12H [facility] Hydromorphone HCl (Dilaudid) 2 mg IVP Q4 PRN PRN Reason: Pain, moderate (4-7) Last Admin: 08/12/18 00:39 Dose: 2 mg Hydromorphone HCl (Dilaudid) 0.5 mg PO Q4 PRN PRN Reason: Pain, severe (8-10) Lactated Ringer's (Lactated Ringer's) 1,000 mls @ 100 mls/hr IV .Q10H [facility] Last Admin: 08/12/18 06:25 Dose: 100 mls/hr Latanoprost (Xalatan Opht) 1 drop OU HS [facility] Last Admin: 08/11/18 21:13 Dose: 1 drop Loratadine (Claritin) 10 mg PO DAILY [facility] Last Admin: 08/12/18 10:12 Dose: 10 mg Losartan Potassium (Cozaar) 50 mg PO DAILY [facility] Last Admin: 08/12/18 09:01 Dose: 50 mg Multivitamins/Minerals (Therapeutic-M Tab) 1 tab PO DAILY [facility] Last Admin: 08/12/18 09:02 Dose: 1 tab Ondansetron HCl (Zofran Inj) 4 mg IVP ONCE PRN PRN Reason: Nausea/Vomiting Risperidone (Risperdal Tab) 0.5 mg PO HS [facility] Last Admin: 08/11/18 21:12 Dose: 0.5 mg Trazodone HCl (Desyrel) 50 mg PO HS PRN PRN Reason: Insomnia - Labs Labs: 08/12/18 05:05 08/12/18 05:05 - Constitutional Appears: No Acute Distress - Head Exam Head Exam: NORMAL INSPECTION - Eye Exam Eye Exam: Normal appearance - Neck Exam Additional comments: anterior MISA drain - Respiratory Exam Respiratory Exam: Clear to Ausculation Bilateral, NORMAL BREATHING PATTERN. absent: Respiratory Distress - Cardiovascular Exam Cardiovascular Exam: REGULAR RHYTHM, +S1, +S2 - GI/Abdominal Exam GI & Abdominal Exam: Soft. absent: Tenderness - Extremities Exam Extremities Exam: Normal Inspection. absent: Calf Tenderness - Neurological Exam Neurological Exam: Alert - Skin Skin Exam: Warm Assessment and Plan (1) Chronic neck pain Status: Chronic (2) Prediabetes Status: Chronic (3) Hyperlipidemia Status: Chronic (4) Depression Status: Chronic - Assessment and Plan (Free Text) Plan: - POD 1 after anterior cervical discectomy by Dr. Cordova; neurosurg on board - Benadryl IVP PRN for itching, claritin PO - Home meds resumed - Pain management and post-op antibiotics as per neurosurg - Encourage incentive spirometry - Consistent carb diet - SCDs <Rasheed Bonilla K - Last Filed: 08/13/18 14:22> Objective - Vital Signs/Intake and Output Vital Signs (last 24 hours): Temp Pulse Resp BP Pulse Ox 98.6 F 89 20 124/82 96 08/13/18 12:23 08/13/18 12:23 08/13/18 12:23 08/13/18 09:27 08/13/18 12:23 - Medications Medications: Current Medications Acetaminophen (Tylenol 325mg Tab) 650 mg PO Q6 PRN PRN Reason: Pain, Mild (1-3) Atorvastatin Calcium (Lipitor) 20 mg PO HS [facility] Last Admin: 08/12/18 21:31 Dose: 20 mg Cyclobenzaprine HCl (Flexeril) 10 mg PO Q8 PRN PRN Reason: Muscle spasm Diphenhydramine HCl (Benadryl) 25 mg IVP Q4 PRN PRN Reason: Itching / Pruritus Last Admin: 08/12/18 10:22 Dose: 25 mg Docusate Sodium (Colace) 100 mg PO BID [facility] Last Admin: 08/13/18 09:26 Dose: 100 mg Escitalopram Oxalate (Lexapro) 20 mg PO DAILY [facility] Last Admin: 08/13/18 09:27 Dose: 20 mg Lactated Ringer's (Lactated Ringer's) 1,000 mls @ 100 mls/hr IV .Q10H [facility] Last Admin: 08/13/18 00:50 Dose: 100 mls/hr Latanoprost (Xalatan Opht) 1 drop OU HS [facility] Last Admin: 08/12/18 21:31 Dose: 1 drop Loratadine (Claritin) 10 mg PO DAILY [facility] Last Admin: 08/13/18 09:27 Dose: 10 mg Losartan Potassium (Cozaar) 50 mg PO DAILY [facility] Last Admin: 08/13/18 09:27 Dose: 50 mg Metformin HCl (Glucophage) 1,000 mg PO BID [facility] Last Admin: 08/13/18 09:27 Dose: 1,000 mg Multivitamins/Minerals (Therapeutic-M Tab) 1 tab PO DAILY [facility] Last Admin: 08/13/18 09:28 Dose: 1 tab Ondansetron HCl (Zofran Inj) 4 mg IVP ONCE PRN PRN Reason: Nausea/Vomiting Risperidone (Risperdal Tab) 0.5 mg PO HS [facility] Last Admin: 08/12/18 21:32 Dose: Not Given Tramadol HCl (Ultram) 50 mg PO Q6 PRN PRN Reason: Pain, moderate (4-7) Trazodone HCl (Desyrel) 50 mg PO HS PRN PRN Reason: Insomnia Last Admin: 08/12/18 22:05 Dose: 50 mg - Labs Labs: 08/13/18 04:35 08/13/18 04:35 Assessment and Plan - Assessment and Plan (Free Text) Plan: Patient was personally seen and examined by me in rounds with residents. Available labs and diagnostic data reviewed. Case, Patient's condition and management plan discussed with residents in rounds. Agree with resident's progress note. Plan: As ordered.
[2018-08-12] MEDS: Latanoprost 0.005% Opht SOUTION OU SCH (21:31)
[2018-08-13] MEDS: Lactated Ringer's 1,000 ML IV SCH (00:50)
[2018-08-13 06:09] LABS: HEMOGLOBIN 9.7 g/dL (12.0-16.0); MEAN CORPUSCULAR HEMOGLOBIN 29.7 pg (27.0-31.0); RBC 3.27 Mil/uL (3.80-5.20); RED CELL DISTRIBUTION WIDTH 14.6 % (11.5-14.5); WHITE BLOOD COUNT 6.8 K/uL (4.8-10.8)
[2018-08-13 06:43] LABS: BLOOD UREA NITROGEN 23 mg/dl (7-17); CALCIUM 8.5 mg/dL (8.4-10.2); GFR NON-AFRICAN AMERICAN 56
[2018-08-13 08:34] VITALS: RESP 20
[2018-08-13] MEDS: Multivitamin With Minerals Tab PO SCH (09:28)
--- NOTE | 2018-08-13 10:47 | CP.PCM.PN ---
Subjective - Date & Time of Evaluation Date of Evaluation: 08/13/18 Time of Evaluation: 08:00 - Subjective Subjective: Patient complaining of neck pain. She is tolerating PO, no nausea, vomiting. Objective - Vital Signs/Intake and Output Vital Signs (last 24 hours): Temp Pulse Resp BP Pulse Ox 98.1 F 97 H 20 124/82 95 08/13/18 08:34 08/13/18 09:27 08/13/18 08:34 08/13/18 09:27 08/13/18 08:34 - Medications Medications: Current Medications Acetaminophen (Tylenol 325mg Tab) 650 mg PO Q6 PRN PRN Reason: Pain, Mild (1-3) Atorvastatin Calcium (Lipitor) 20 mg PO HS [facility] Last Admin: 08/12/18 21:31 Dose: 20 mg Cyclobenzaprine HCl (Flexeril) 10 mg PO Q8 PRN PRN Reason: Muscle spasm Diphenhydramine HCl (Benadryl) 25 mg IVP Q4 PRN PRN Reason: Itching / Pruritus Last Admin: 08/12/18 10:22 Dose: 25 mg Docusate Sodium (Colace) 100 mg PO BID [facility] Last Admin: 08/13/18 09:26 Dose: 100 mg Escitalopram Oxalate (Lexapro) 20 mg PO DAILY [facility] Last Admin: 08/13/18 09:27 Dose: 20 mg Lactated Ringer's (Lactated Ringer's) 1,000 mls @ 100 mls/hr IV .Q10H [facility] Last Admin: 08/13/18 00:50 Dose: 100 mls/hr Ketorolac Tromethamine (Toradol) 15 mg IVP Q6 PRN PRN Reason: Pain, severe (8-10) Last Admin: 08/13/18 09:28 Dose: 15 mg Latanoprost (Xalatan Opht) 1 drop OU HS [facility] Last Admin: 08/12/18 21:31 Dose: 1 drop Loratadine (Claritin) 10 mg PO DAILY [facility] Last Admin: 08/13/18 09:27 Dose: 10 mg Losartan Potassium (Cozaar) 50 mg PO DAILY [facility] Last Admin: 08/13/18 09:27 Dose: 50 mg Metformin HCl (Glucophage) 1,000 mg PO BID [facility] Last Admin: 08/13/18 09:27 Dose: 1,000 mg Multivitamins/Minerals (Therapeutic-M Tab) 1 tab PO DAILY [facility] Last Admin: 08/13/18 09:28 Dose: 1 tab Ondansetron HCl (Zofran Inj) 4 mg IVP ONCE PRN PRN Reason: Nausea/Vomiting Risperidone (Risperdal Tab) 0.5 mg PO HS [facility] Last Admin: 08/12/18 21:32 Dose: Not Given Tramadol HCl (Ultram) 50 mg PO Q6 PRN PRN Reason: Pain, moderate (4-7) Trazodone HCl (Desyrel) 50 mg PO HS PRN PRN Reason: Insomnia Last Admin: 08/12/18 22:05 Dose: 50 mg - Labs Labs: 08/13/18 04:35 08/13/18 04:35 - Neck Exam Additional comments: <5cc in MISA, pulled dressing changed sensation intact BUE Assessment and Plan (1) Cervical spondylosis Assessment & Plan: POD#2 s/p ACDF stable for d/c home MISA removed, dressing applied, keep incision site clean and dry soft cervical collar d/c home today f/u Dr. Cordova 2 weeks call for appt Status: Acute
[2018-08-13 12:23] VITALS: PULSE 89; TEMP 98.6; O2SAT 96
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
[2018-08-13 15:43] VITALS: BP 89/57
== END 2018-08-13 18:10 | disposition home or self-care (01) | DRG 473 ==
LOC: H.OPSURG 06:03 → H.TEL 07:57
PROVIDERS: ADMIT Family Medicine; ATTEND Family Medicine
PROC: 0RG20AJ Fusion of 2 or more Cervical Vertebral Joints with Interbody Fusion Device, Posterior Approach, Anterior Column, Open Approach (ICD-10-PCS; 2018-08-11)
PROC: 0RB30ZZ Excision of Cervical Vertebral Disc, Open Approach (ICD-10-PCS; principal; 2018-08-11 07:30)
DX: M47.12 Other spondylosis with myelopathy, cervical region (principal); G89.29 Other chronic pain; I34.1 Nonrheumatic mitral (valve) prolapse; I10 Essential (primary) hypertension; J45.909 Unspecified asthma, uncomplicated; E11.9 Type 2 diabetes mellitus without complications; E78.00 Pure hypercholesterolemia, unspecified; E78.5 Hyperlipidemia, unspecified; K21.9 Gastro-esophageal reflux disease without esophagitis; F32.9 Major depressive disorder, single episode, unspecified; F41.9 Anxiety disorder, unspecified; M19.90 Unspecified osteoarthritis, unspecified site; Z87.891 Personal history of nicotine dependence; Z88.0 Allergy status to penicillin; Z88.6 Allergy status to analgesic agent; Z91.040 Latex allergy status

== ENCOUNTER 2018-08-25 15:25 | Inpatient (IN) | payer MEDICARE, MEDICAID ==
[2018-08-25 15:25] VITALS: BMI 32.9
--- NOTE | 2018-08-25 18:20 | ED PDOC ---
HPI: Psych/Substance Abuse Time Seen by Provider: 08/25/18 17:38 Chief Complaint (Nursing): Psychiatric Evaluation Chief Complaint (Provider): Psychiatric Evaluation History Per: Patient History/Exam Limitations: no limitations Onset/Duration Of Symptoms: Days Current Symptoms Are (Timing): Still Present Associated Symptoms: Depression Additional Complaint(s): 63 year old female with a past medical history of hypertension, hypercholesterolemia, depression and anxiety who is presenting to the ED sent from her PMD for evaluation of depression for the past couple of weeks. Patient states that she has spinal surgery done by Dr. Cordova on August 11. She reports that pain is relieved with tramadol and visited Dr. Cordova last week who stated everything was normal. Patient is also complaining of trouble at home and foul smelling urine. She offers no other medical complaints at this time. PMD: Lenin Valenzuela Past Medical History Reviewed: Historical Data, Nursing Documentation, Vital Signs Vital Signs: Last Vital Signs Temp 98.2 F 08/25/18 17:00 Pulse 75 08/25/18 17:00 Resp 16 08/25/18 17:00 BP 186/89 H 08/25/18 17:00 Pulse Ox 98 08/25/18 17:00 - Medical History PMH: Anemia, Anxiety, Arthritis, Asthma, Depression, Gastritis, HTN, Hypercholesterolemia, Mitral Valve Prolapse, Pancreatitis Denies: CHF, COPD, Diabetes, Hepatitis, HIV, Hypothyroidism, Chronic Kidney Disease, Rheumatoid Arthritis, Seizures, Sexually Transmitted Disease - Surgical History Surgical History: Appendectomy - Family History Family History: States: Unknown Family Hx - Social History Current smoker - smoking cessation education provided: No Alcohol: None Drugs: Denies - Home Medications Home Medications: Ambulatory Orders Medication Instructions Recorded Atorvastatin [Lipitor] 20 mg PO HS 04/11/17 Losartan [Cozaar] 50 mg PO DAILY 04/11/17 MetFORMIN [glucoPHAGE] 1,000 mg PO BID 04/11/17 cycloSPORINE [Restasis] 1 drop BOTHEYES Q12H 04/11/17 Multivitamin [Multi-Vitamin Daily] 1 tab PO DAILY 04/16/17 Dulaglutide [Trulicity] 1.5 mg SC QWK 06/23/18 Latanoprost 0.005% Opht [Xalatan 1 drop OU HS 06/23/18 Opht] Escitalopram [Lexapro] 20 mg PO DAILY #30 tab 11/05/18 risperiDONE [RisperDAL Tab] 0.5 mg PO HS #30 tab 06/28/18 traZODone [Desyrel] 50 mg PO HS PRN #30 tab 06/28/18 Acetaminophen [Tylenol 325mg tab] 650 mg PO Q6 PRN tab 08/13/18 traMADol [Ultram] 50 mg PO Q6 PRN #20 tab 08/13/18 - Allergies Allergies/Adverse Reactions: Allergies Allergy/AdvReac Type Severity Reaction Status Date / Time codeine Allergy RASH Verified 06/23/18 03:11 hydromorphone [From Dilaudid] Allergy RASH Verified 08/12/18 15:10 latex Allergy RASH Verified 08/11/18 06:46 morphine Allergy RASH Verified 06/23/18 03:11 Penicillins Allergy RASH Verified 06/23/18 03:11 Review of Systems ROS Statement: Except As Marked, All Systems Reviewed And Found Negative Genitourinary Female: Positive for: Other (foul smelling urine ) Psych: Positive for: Depression Physical Exam - Reviewed Nursing Documentation Reviewed: Yes Vital Signs Reviewed: Yes - Physical Exam Appears: Positive for: Non-toxic, No Acute Distress Head Exam: Positive for: ATRAUMATIC, NORMAL INSPECTION, NORMOCEPHALIC Skin: Positive for: Normal Color, Warm, DRY Eye Exam: Positive for: EOMI, Normal appearance, PERRL ENT: Positive for: Normal ENT Inspection Neck: Positive for: Normal (but with horizontal scar to right side of neck C/D/I) Cardiovascular/Chest: Positive for: Regular Rate, Rhythm. Negative for: Murmur Respiratory: Positive for: Normal Breath Sounds. Negative for: Respiratory Distress Gastrointestinal/Abdominal: Positive for: Normal Exam, Soft. Negative for: Tenderness Back: Positive for: Normal Inspection. Negative for: L CVA Tenderness, R CVA Tenderness Extremity: Positive for: Normal ROM. Negative for: Deformity, Swelling Neurologic/Psych: Positive for: Alert, Oriented. Negative for: Motor/Sensory Deficits - Laboratory Results Result Diagrams: 08/25/18 19:12 - ECG Interpretation Of ECG: NSR @ 62, no ST-T changes. O2 Sat by Pulse Oximetry: 98 (RA) Pulse Ox Interpretation: Normal - Radiology X-Ray: Interpreted by Ut X-Ray Interpretation: No Acute Disease Medical Decision Making Medical Decision Making: Time: 18:14 Plan: --Crisis Evaluation --ED Urine Dipstick --Urinalysis Scribe Attestation: Documented by Ira Beach, acting as a scribe for Kita Cornelius MD. Provider Scribe Attestation: All medical record entries made by the Scribe were at my direction and personally dictated by me. I have reviewed the chart and agree that the record accurately reflects my personal performance of the history, physical exam, medical decision making, and the department course for this patient. I have also personally directed, reviewed, and agree with the discharge instructions and disposition. Disposition - Disposition Forms: [employer] (Latvian)
[2018-08-25 18:50] LABS: SQUAMOUS EPITHIAL < 1 /hpf (0-5); URINE BILIRUBIN NEGATIVE (NEGATIVE); URINE BLOOD NEGATIVE (NEGATIVE); URINE CLARITY SLIGHTY-CLOUDY (Clear); URINE COLOR YELLOW (YELLOW); URINE GLUCOSE (UA) NEG (NEGATIVE); URINE LEUKOCYTE ESTERASE NEG Leu/uL (Negative); URINE PROTEIN NEGATIVE (NEGATIVE); URINE UROBILINOGEN 0.2-1.0 mg/dL (0.2-1.0)
[2018-08-25 20:54] LABS: BARBITURATES, UR NEGATIVE (NEGATIVE); BENZODIAZEPINES, UR NEGATIVE (NEGATIVE); OPIATES, UR NEGATIVE (NEGATIVE); PHENCYCLIDINE, UR NEGATIVE (NEGATIVE)
[2018-08-25 21:38] LABS: BASO % 0.4 % (0.0-2.0); EOS # 0.3 K/uL (0.0-0.7); EOS % 4.1 % (0.0-4.0); HEMOGLOBIN 12.1 g/dL (12.0-16.0); LYMPH # 2.9 K/uL (1.0-4.3); LYMPH % 37.2 % (20.0-40.0); MEAN CELL VOLUME 93.8 fl (81.0-99.0); MEAN CORPUSCULAR HEMOGLOBIN 29.7 pg (27.0-31.0); MEAN CORPUSCULAR HGB CONC 31.6 g/dL (33.0-37.0); MEAN PLATELET VOLUME 7.7 fl (7.2-11.7); MONO # 0.4 K/uL (0.0-0.8); MONO % 5.6 % (0.0-10.0); NEUT # 4.1 K/uL (1.8-7.0); NEUT % 52.7 % (50.0-75.0); NRBC % 0.2 % (0.0-0.0); RBC 4.07 Mil/uL (3.80-5.20); RED CELL DISTRIBUTION WIDTH 14.8 % (11.5-14.5); WHITE BLOOD COUNT 7.7 K/uL (4.8-10.8)
[2018-08-25 22:32] LABS: BLOOD UREA NITROGEN 16 mg/dl (7-17)
[2018-08-25 22:33] LABS: ALB/GLOB RATIO 1.4 (1.0-2.1); ALBUMIN 4.2 g/dL (3.5-5.0); ALT/SGPT 32 U/L (9-52); AST/SGOT 36 U/L (14-36); CALCIUM 9.8 mg/dL (8.4-10.2); GFR NON-AFRICAN AMERICAN > 60
[2018-08-25] MEDS ORDERED: Fluconazole 150 MG TAB PO STA (23:37)
[2018-08-26] MEDS ORDERED: Magnesium Hydroxide Susp 30 ml UD PO PRN (02:41)
[2018-08-26] MEDS ORDERED: Alum-Mag Hydrox-Simethicone Susp (30 mL) PO PRN (02:41)
[2018-08-26 03:03] VITALS: O2SAT 99
--- NOTE | 2018-08-26 03:22 | PCM.BM ---
<UriasDequanRich - Last Filed: 08/26/18 03:20> Treatment Plan Problems - Problems identified on initial assessmt Hopelessness/Helplessness Date Initiated: 08/26/18 Time Initiated: 03:20 Assessment reference: NA Status: Active Altered Sleep Patterns Date Initiated: 08/26/18 Time Initiated: 03:21 Assessment reference: NA Status: Active Treatment assets and liabiliti Patient Assests: adapts well, cooperative, good support system, negotiates basic needs Patient Liabilities: physical pain, relationship conflicts, medical problems - Milieu Protocol Maintain good personal hygiene: every shift Encourage regular showers, every shift Remind patient to perform daily oral care, every shift Assist patient to perform ADL's Conduct patient checks and document Observation sheet: Q15 minutes Maintain personal safety: every shift Educate patient to report safety concerns to staff, every shift Monitor environment for contraband/sharps Medication safety: Monitor for expected outcome, potential side effects: every shift, Assess barriers to learning: every shift, Assess readiness for medication education: every shift <Akila Moody - Last Filed: 08/26/18 10:21> - Diagnosis (1) Major depressive disorder Status: Chronic Interventions: Medication management, Individual and group therapy, Psychoeducation 08/26/18 10:21 <Prerna Wright - Last Filed: 08/27/18 11:29> Family Contact Family involvement: Family/SO is involved Family contact: Patient agrees to contact, Family has been contacted by patient, Telephone contact initiated by staff Family contact name: Dwight - spouse Family contacted how many times per week?: 2 - Goals for Treatment Patient goals for treatment: Pt will improve overall mood. Pt will be free of suicidal thoughts. Pt will report feeling more positive about self and abilities. Pt will develop strategies for thought distraction when ruminating on the past. Pt will learn and use meditation and relaxation techniques daily. Pt will explore and resolve stress from maritual issues and relationship. Discharge/Continuing Care - Education Needs Education Needs: Family Medication, Family Diagnosis/Disease Process, Family Coping Skills, Family Community resources, Family Activities of Daily Living, Family Nutrition, Family Uses of Medical Equipment, Family Personal Hygiene/Grooming, Family Aftercare Safety Plan, Patient Medication, Patient Diagnosis/Disease Process, Patient Coping Skills, Patient Community resources, Patient Activities of Daily Living, Patient Nutrition, Patient Uses of Medical Equipment, Patient Personal Hygiene/Grooming, Patient Aftercare Safety Plan - Discharge Discharge Criteria: Tolerates medication w/o severe side effects, Free of Suicidal thoughts, Normal sleep pattern, Ability to care for self, Reduction of target symptoms Discharge to:: Home, With Family - Additional Comments 08/27/18 11:10 Pt seen and discussed in team meeting. Reason for admission reviewed and discussed. Pt reported feeling depressed and anxious in the context of marital issues, medical/health issues, lack of emotional support and poor sleep. Pt reported that she and her of 20 years have been experiencing marital issues due to spouse's increased drinking and poor insight into his mental health. Per pt, spouse suffers from depression and has been self-medicating himself with alcohol and increased cigarette smoking. Pt reported that spouse has several health issues that require surgery; however, pt of poor care and lack of health insurance her spouse cannot be operated at the time. Pt reported she attempted to speak to her spouse; however, he becomes verbally abusive and easily irritable towards her. Pt reported being s/p cervical surgery and feeling helpless at home because her spouse has to assist her with household duties. Pt reported that she became increasingly depressed and hopeless that she felt like she did not want to live like that anymore. Pt reported having suicide ideation but no plan. Pt reported tx non-compliance for mental health services outpatient. Pt reported she was following up with her PMD, Dr. Yoselyn MD. Pt's social and medical issues reviewed and discussed. Pt's medications reviewed. Pt reported she feels as if her current medication is not working properly and feels like she is not improving. Attending psychiatrist reviewed medication regimen with pt and agreed to discontinue the Trazadone and start pt on Rameron 7.5mg. Pt verbalized agreement. Tx plan reviewed and discussed. Pt signed written consent for writer editor to contact spouse for collateral information. SW to continue to follow case. - Treatment Team Participation Discussed with Family/SO: No Was Patient/Family/SO present at Treatment Team Meeting: Yes
--- NOTE | 2018-08-26 07:54 | PCM.PSYCH ---
Initial Psychiatric Evaluation - Initial Psychiatric Evaluation Type of Admission: Voluntary Legal Status: Capacity Chief Complaint (in patient's own words): "I'm depressed." Patient's Reaction to Hospitalization: HPI: 63 yo Mong[place]ian female, w/ h/o depression, presents w/ worsening depression, passive wishes she would , sleep/appetite disturbances, anhedonia, hopelessness and low motivation. She reports that she has been having marital discord which causes increased stress and anxiety. PPHx: H/o depression and anxiety; History of 2 suicide attempts by overdoses on medication (19 yrs old, 20s). Receives psychiatric treatment from PMD. Currently taking Lexapro 20 mg PO Daily. She was previously prescribed Risperdal 0.5 mg PO HS for psychosis after she was admitted to [facility] in 06/10, but has not had any recent psychotic symptoms. She also takes Trazodone intermittently. PMHx: HTN, HLD, DM, chronic back pain; Jul 2018- spinal surgery ALL: Codeine, Morphine, PCN, latex, hydromorphone SH: From [place], 3 adult children, in 3rd marriage, unemployed on disability, denies drugs/etoh/cig use Current Medications: Active Medications Generic Name Dose Route Start Last Admin Trade Name Freq PRN Reason Stop Dose Admin Acetaminophen 650 mg 08/26/18 02:41 Tylenol 325mg Tab PO Q4 PRN Pain, moderate (4-7) Al Hydrox/Mg Hydrox/Simethicone 30 ml 08/26/18 02:41 Maalox Plus 30 Ml PO Q4 PRN Dyspepsia Lorazepam 0.5 mg 08/26/18 02:41 Ativan PO 09/09/18 02:42 HS PRN Insomnia Lorazepam 0.5 mg 08/26/18 02:41 Ativan PO 09/09/18 02:42 Q6 PRN Anixety/Agitation Magnesium Hydroxide 30 ml 08/26/18 02:41 Milk Of Magnesia PO HS PRN Constipation Past Psychiatric History - Past Psychiatric History Previous Treatment History: Inpatient Pertinent Medical Hx (Current Medical&Sleep Prob, Allergies): Allergies Allergy/AdvReac Type Severity Reaction Status Date / Time codeine Allergy RASH Verified 06/23/18 03:11 hydromorphone [From Dilaudid] Allergy RASH Verified 08/12/18 15:10 latex Allergy RASH Verified 08/11/18 06:46 morphine Allergy RASH Verified 06/23/18 03:11 Penicillins Allergy RASH Verified 06/23/18 03:11 Atorvastatin [Lipitor] 20 mg PO HS 04/11/17 Losartan [Cozaar] 50 mg PO DAILY 04/11/17 MetFORMIN [glucoPHAGE] 1,000 mg PO BID 04/11/17 cycloSPORINE [Restasis] 1 drop BOTHEYES DAILY 04/11/17 Multivitamin [Multi-Vitamin Daily] 1 tab PO DAILY 04/16/17 Dulaglutide [Trulicity] 1.5 mg SC QWK 06/23/18 Latanoprost 0.005% Opht [Xalatan Opht] 1 drop OU HS 06/23/18 Escitalopram [Lexapro] 20 mg PO DAILY #30 tab 06/28/18 risperiDONE [RisperDAL Tab] 0.5 mg PO HS #30 tab 06/28/18 traZODone [Desyrel] 50 mg PO HS PRN #30 tab 06/28/18 Acetaminophen [Tylenol 325mg tab] 650 mg PO Q6 PRN tab 08/13/18 traMADol [Ultram] 50 mg PO Q6 PRN #20 tab 08/13/18 Dexlansoprazole [Dexilant] 60 mg PO DAILY 08/26/18 Review of Systems - Psychiatric Psychiatric: Abnormal Sleep Pattern, Anhedonia, Anxiety, Change in Appetite, Depression, Difficulty Concentrating, Hopelessness, Irritability, Mood Swings, Suicidal Ideation Mental Status Examination - Personal Presentation Personal Presentation: Looks stated age - Affect Affect: Constricted, Depressed - Motor Activity Motor Activity: Calm - Reliability in Providing Information Reliability in Providing Information: Good - Speech Speech: Organized - Mood Mood: Depressed, Anxious - Formal Thought Process Formal Thought Process: No Impairment - Hallucinations/Delusions Additional comments: NO AH/VH/paranoia/delusions - Obsessions/Compulsions Obsessions: No Compulsions: No - Cognitive Functions Orientation: Person, Place, Situation, Time Sensorium: Alert Attention/Concentration: Attentive Judgement: Intact, as evidence by: Good judgement, Intact, as evidence by: Insight regarding need for hospitalization Memory: Recent intact, as evidence by: Ability to recall events of the day, Remote intact, as evidenced by: Abilit to recall sig. life events, Remote intact, as evidenced by: Ability to recall historical events - Risk Risk: Diminished functioning - Strength & Assets Inventory Strength & Assets Inventory: Cooperative DSM 5 DX - DSM 5 DSM 5 Diagnosis: Major Depressive Disorder; Generalized Anxiety Disorder - Recommended/Plan of Treatment Treatment Recommendations and Plan of Treatment: Major Depressive Disorder; Generalized Anxiety Disorder -Admit to psychiatry unit -Individual and group therapy -Medicine consult -Lexapro 20 mg PO Daily -Trazodone 50 mg PO HS -Disposition planning Projected ELOS: 5-10 days Discharge Plan and Discharge Criteria: Discharge when patient is psychiatrically stable - Smoking Cessation Smoking Cessation Initiated: No Reason for not providing: Not indicated
[2018-08-26 07:56] LABS: T4 6.51 ug/dl (5.5-11.0)
[2018-08-26 08:02] LABS: IRON 103 ug/dL (37-170)
[2018-08-26 08:11] LABS: % IRON SATURATION 27 % (20-55); TOTAL IRON BINDING CAPACITY 384 ug/dL (250-450)
[2018-08-26 08:14] LABS: FERRITIN 8.1 ng/Ml (11.1-264.0)
--- NOTE | 2018-08-26 09:09 | CARD ---
APPROVED REPORT Date of service: 08/25/2018 EKG Measurement Heart [id number] <Conclusion> Normal sinus rhythm Normal ECG
--- NOTE | 2018-08-26 11:22 | RAD ---
Date of service: 08/25/2018 HISTORY: Depression COMPARISON: 06/23/2018 TECHNIQUE: Chest PA and lateral FINDINGS: LUNGS: No active pulmonary disease. PLEURA: No significant pleural effusion identified. No pneumothorax apparent. CARDIOVASCULAR: No aortic atherosclerotic calcification present. Normal cardiac size. No pulmonary vascular congestion. OSSEOUS STRUCTURES: No significant abnormalities. VISUALIZED UPPER ABDOMEN: Normal. OTHER FINDINGS: None. IMPRESSION: No active disease. No significant interval change compared to the prior examination(s). Concordant results with the preliminary interpretation rendered by the emergency department physician procedure.
[2018-08-26] MEDS: Multivitamin With Minerals Tab PO SCH (12:14)
[2018-08-26] MEDS: Patient's Own Med (Cyclosporine [Restasis] 1 DROP) BOTHEYES SCH ×2 (12:16→12:23)
--- NOTE | 2018-08-26 12:22 | CP.PCM.CON ---
History of Present Illness - History of Present Illness History of Present Illness: This is a 63 y/o female with hx of HTN hyperlipidemia and mild DM was admitted due to worsening of sx of depression. She has been admitted to Psych floor i for the same reason. She claims that she has a lot of issues at home but the one that stresses her the most is the medical condition of her . Review of Systems - Psychiatric Psychiatric: Abnormal Sleep Pattern, Anxiety, Change in Libido, Depression, Mood Swings Past Patient History - Past Medical History & Family History Past Medical History?: Yes - Past Social History Alcohol: None Drugs: Denies - CARDIAC Hx Congestive Heart Failure: No Hx Hypercholesterolemia: Yes Hx Hypertension: Yes Hx Mitral Valve Prolapse: Yes - PULMONARY Hx Asthma: Yes Hx Chronic Obstructive Pulmonary Disease (COPD): No - NEUROLOGICAL Hx Seizures: No - HEENT Hx HEENT Problems: Yes Hx Glaucoma: Yes - RENAL Hx Chronic Kidney Disease: No - ENDOCRINE/METABOLIC Hx Hypothyroidism: No - HEMATOLOGICAL/ONCOLOGICAL Hx Anemia: Yes Hx Human Immunodeficiency Virus (HIV): No - INTEGUMENTARY Hx Dermatological Problems: No - MUSCULOSKELETAL/RHEUMATOLOGICAL Hx Arthritis: Yes Hx Rheumatoid Arthritis: No - GASTROINTESTINAL Hx Gastritis: Yes Hx Pancreatitis: Yes - GENITOURINARY/GYNECOLOGICAL Hx Sexually Transmitted Disorders: No - PSYCHIATRIC Hx Anxiety: Yes Hx Depression: Yes Hx Substance Use: No - SURGICAL HISTORY Hx Appendectomy: Yes Other/Comment: 08/11/18 -CERVICAL LAMINOTOMY - ANESTHESIA Hx Anesthesia: Yes Hx Anesthesia Reactions: No Hx Malignant Hyperthermia: No Meds Allergies/Adverse Reactions: Allergies Allergy/AdvReac Type Severity Reaction Status Date / Time codeine Allergy RASH Verified 06/23/18 03:11 hydromorphone [From Dilaudid] Allergy RASH Verified 08/12/18 15:10 latex Allergy RASH Verified 08/11/18 06:46 morphine Allergy RASH Verified 06/23/18 03:11 Penicillins Allergy RASH Verified 06/23/18 03:11 - Medications Medications: Current Medications Acetaminophen (Tylenol 325mg Tab) 650 mg PO Q4 PRN PRN Reason: Pain, moderate (4-7) Al Hydrox/Mg Hydrox/Simethicone (Maalox Plus 30 Ml) 30 ml PO Q4 PRN PRN Reason: Dyspepsia Atorvastatin Calcium (Lipitor) 20 mg PO HS LEYLA Atorvastatin Calcium (Lipitor) 20 mg PO DAILY [facility] Escitalopram Oxalate (Lexapro) 20 mg PO DAILY [facility] Last Admin: 08/26/18 12:14 Dose: 20 mg Home Med (Cyclosporine [Restasis]) 1 drop BOTHEYES DAILY [facility] Last Admin: 08/26/18 12:16 Dose: Not Given Home Med (Dulaglutide [Trulicity]) 1.5 mg SC QWK [facility] Latanoprost (Xalatan Opht) 1 drop OU HS [facility] Lorazepam (Ativan) 0.5 mg PO HS PRN PRN Reason: Insomnia Stop: 09/09/18 02:42 Lorazepam (Ativan) 0.5 mg PO Q6 PRN PRN Reason: Anixety/Agitation Stop: 09/09/18 02:42 Losartan Potassium (Cozaar) 50 mg PO DAILY [facility] Last Admin: 08/26/18 12:15 Dose: 50 mg Losartan Potassium (Cozaar) 50 mg PO DAILY [facility] Magnesium Hydroxide (Milk Of Magnesia) 30 ml PO HS PRN PRN Reason: Constipation Metformin HCl (Glucophage) 1,000 mg PO BID [facility] Last Admin: 08/26/18 12:15 Dose: 1,000 mg Metformin HCl (Glucophage) 1,000 mg PO BIDWM [facility] Multivitamins/Minerals (Therapeutic-M Tab) 1 tab PO DAILY [facility] Last Admin: 08/26/18 12:14 Dose: 1 tab Pantoprazole Sodium (Protonix Ec Tab) 40 mg PO SUN [facility] Pantoprazole Sodium (Protonix Ec Tab) 40 mg PO DAILY [facility] Tramadol HCl (Ultram) 50 mg PO Q6 PRN PRN Reason: Pain, moderate (4-7) Trazodone HCl (Desyrel) 50 mg PO HS [facility] Physical Exam - Head Exam Head Exam: NORMAL INSPECTION - Eye Exam Eye Exam: Normal appearance - Respiratory Exam Respiratory Exam: Clear to Auscultation Bilateral - Cardiovascular Exam Cardiovascular Exam: REGULAR RHYTHM - Neurological Exam Neurological exam: CN II-XII Intact Results - Vital Signs Recent Vital Signs: Last Vital Signs Temp 97.2 F L 08/26/18 06:00 Pulse 62 08/26/18 12:15 Resp 18 08/26/18 06:00 BP 109/71 08/26/18 12:15 Pulse Ox 99 08/26/18 00:46 - Labs Result Diagrams: 08/25/18 19:12 01/02/19 19:12 Labs: Laboratory Results - last 24 hr 08/25/18 08/25/18 08/25/18 18:32 19:12 19:12 WBC 7.7 RBC 4.07 Hgb 12.1 D Hct 38.2 MCV 93.8 D MCH 29.7 MCHC 31.6 L RDW 14.8 H Plt Count 398 D MPV 7.7 Neut % (Auto) 52.7 Lymph % (Auto) 37.2 [place] % (Auto) 5.6 Eos % (Auto) 4.1 H Baso % (Auto) 0.4 Neut # (Auto) 4.1 Lymph # (Auto) 2.9 Pre[place] # (Auto) 0.4 Eos # (Auto) 0.3 Baso # (Auto) 0.0 Sodium 141 Potassium 4.2 Chloride 102 Carbon Dioxide 27 Anion Gap 16 BUN 16 Creatinine 0.8 Est GFR ( Amer) > 60 Est GFR (Non-Af Amer) > 60 POC Glucose (mg/dL) Random Glucose 72 Calcium 9.8 Iron TIBC % Saturation Ferritin Total Bilirubin 0.2 AST 36 ALT 32 Alkaline Phosphatase 90 Total Protein 7.3 Albumin 4.2 Globulin 3.1 Albumin/Globulin Ratio 1.4 Triglycerides Cholesterol LDL Cholesterol Direct HDL Cholesterol Vitamin B12 Free T4 Thyroxine (T4) TSH 3rd Generation Urine Color Yellow Urine Clarity Slighty-cloudy Urine pH 6.0 Ur Specific [place] 1.012 Urine Protein Negative Urine Glucose (UA) Neg Urine Ketones Negative Urine Blood Negative Urine Nitrate Negative Urine Bilirubin Negative Urine Urobilinogen 0.2-1.0 Ur Leukocyte Esterase Neg Urine RBC (Auto) 1 Urine Microscopic WBC < 1 Ur Squamous Epith Cells < 1 Urine Opiates Screen Urine Methadone Screen Ur Barbiturates Screen Ur Phencyclidine Scrn Ur Amphetamines Screen U Benzodiazepines Scrn U Oth Cocaine Metabols U Cannabinoids Screen Alcohol, Quantitative < 10 08/25/18 08/26/18 08/26/18 19:30 06:02 06:25 WBC RBC Hgb Hct MCV MCH MCHC RDW Plt Count MPV Neut % (Auto) Lymph % (Auto) [place] % (Auto) Eos % (Auto) Baso % (Auto) Neut # (Auto) Lymph # (Auto) Pre[place] # (Auto) Eos # (Auto) Baso # (Auto) Sodium Potassium Chloride Carbon Dioxide Anion Gap BUN Creatinine Est GFR ( Amer) Est GFR (Non-Af Amer) POC Glucose (mg/dL) 85 Random Glucose Calcium Iron TIBC % Saturation Ferritin 8.1 L Total Bilirubin AST ALT Alkaline Phosphatase Total Protein Albumin Globulin Albumin/Globulin Ratio Triglycerides 107 Cholesterol 147 LDL Cholesterol Direct 77 HDL Cholesterol 59 Vitamin B12 779 Free T4 Thyroxine (T4) 6.51 TSH 3rd Generation 4.88 H Urine Color Urine Clarity Urine pH Ur Specific [place] Urine Protein Urine Glucose (UA) Urine Ketones Urine Blood Urine Nitrate Urine Bilirubin Urine Urobilinogen Ur Leukocyte Esterase Urine RBC (Auto) Urine Microscopic WBC Ur Squamous Epith Cells Urine Opiates Screen Negative Urine Methadone Screen Negative Ur Barbiturates Screen Negative Ur Phencyclidine Scrn Negative Ur Amphetamines Screen Negative U Benzodiazepines Scrn Negative U Oth Cocaine Metabols Negative U Cannabinoids Screen Negative Alcohol, Quantitative 08/26/18 08/26/18 06:25 06:25 WBC RBC Hgb Hct MCV MCH MCHC RDW Plt Count MPV Neut % (Auto) Lymph % (Auto) [place] % (Auto) Eos % (Auto) Baso % (Auto) Neut # (Auto) Lymph # (Auto) Pre[place] # (Auto) Eos # (Auto) Baso # (Auto) Sodium Potassium Chloride Carbon Dioxide Anion Gap BUN Creatinine Est GFR ( Amer) Est GFR (Non-Af Amer) POC Glucose (mg/dL) Random Glucose Calcium Iron 103 TIBC 384 % Saturation 27 Ferritin Total Bilirubin AST ALT Alkaline Phosphatase Total Protein Albumin Globulin Albumin/Globulin Ratio Triglycerides Cholesterol LDL Cholesterol Direct HDL Cholesterol Vitamin B12 Free T4 0.80 Thyroxine (T4) TSH 3rd Generation Urine Color Urine Clarity Urine pH Ur Specific [place] Urine Protein Urine Glucose (UA) Urine Ketones Urine Blood Urine Nitrate Urine Bilirubin Urine Urobilinogen Ur Leukocyte Esterase Urine RBC (Auto) Urine Microscopic WBC Ur Squamous Epith Cells Urine Opiates Screen Urine Methadone Screen Ur Barbiturates Screen Ur Phencyclidine Scrn Ur Amphetamines Screen U Benzodiazepines Scrn U Oth Cocaine Metabols U Cannabinoids Screen Alcohol, Quantitative Assessment & Plan (1) Anxiety Status: Acute (2) Hyperlipidemia Status: Chronic (3) Hypertension Status: Chronic (4) Major depressive disorder Status: Chronic - Assessment and Plan (Free Text) Plan: restart all home meds low salt low fat diet follow up with Psych.
[2018-08-26] MEDS ORDERED: Pantoprazole 40 mg EC Tab PO SCH (12:30)
[2018-08-26 17:55] LABS: FOLATE 18.7 ng/mL
[2018-08-26] MEDS: Latanoprost 0.005% Opht SOUTION OU SCH (21:34)
[2018-08-27] MEDS: Patient's Own Med (Cyclosporine [Restasis] 1 DROP) BOTHEYES SCH (08:11)
[2018-08-27] MEDS: Multivitamin With Minerals Tab PO SCH (08:13)
--- NOTE | 2018-08-27 11:07 | PCM.PYCHPN ---
Psychiatric Progress Note - Psychiatric Progress Note Patient seen today, length of contact: Pt evaluated, case discussed w/ team, chart reviewed Patient Chief Complaint: "I'm depressed." Problems Identified/Issues Discussed: Patient continues to report feeling depressed and anxious. She believes that the Trazodone makes her feel groggy in the morning, so she requested to be taken off the medication. We discussed starting Remeron, r/b/se reviewed. NO AH/VH/SI/HI. Medication Change: Yes (Start Remeron 7.5 mg PO HS) Medical Record Reviewed: Yes Consults ordered or reviewed: Medicine consult Mental Status Examination - Cognitive Function Orientation: Person, Place, Situation, Time Memory: Intact Attention: WNL Concentration: WNL Association: WNL Fund of Knowledge: [facility] Decription of patient's judgement and insights: Fair I/J - Mood Mood: Depressed, Anxious - Affect Affect: Constricted, Depressed - Formal Thought Process Formal Thought Process: No Impairment Psychotic Thoughts and Behaviors: No AH/VH/paranoia/delusions - Suicidal Ideation Suicidal Ideation: No - Homicidal Ideation Homicidal Ideation: No Goal/Treatment Plan - Goal/Treatment Plan Need for Continued Stay: Remain at risks for inpatient hospitalization, Severe depression anxiety, Discharge may exacerbated symptoms Progress Toward Problem(s) and Goals/Treatment Plan: Major Depressive Disorder; Generalized Anxiety Disorder -Individual and group therapy -Medicine consult -Lexapro 20 mg PO Daily -Stop Trazodone -Start Remeron 7.5 mg PO HS -Disposition planning
[2018-08-27] MEDS: Latanoprost 0.005% Opht SOUTION OU SCH (21:20)
[2018-08-28] MEDS: Multivitamin With Minerals Tab PO SCH (08:19)
[2018-08-28] MEDS: Patient's Own Med (Cyclosporine [Restasis] 1 DROP) BOTHEYES SCH (08:20)
--- NOTE | 2018-08-28 22:24 | PCM.PYCHPN ---
Psychiatric Progress Note - Psychiatric Progress Note Patient seen today, length of contact: Pt evaluated, case discussed w/ team, chart reviewed Medication Change: Yes (Start Remeron 7.5 mg PO HS) Medical Record Reviewed: Yes Mental Status Examination - Cognitive Function Orientation: Person, Place, Situation, Time Memory: Intact Attention: WNL Concentration: WNL Association: WNL Fund of Knowledge: WNL - Mood Mood: Depressed, Anxious - Affect Affect: Constricted, Depressed - Formal Thought Process Formal Thought Process: No Impairment - Suicidal Ideation Suicidal Ideation: No - Homicidal Ideation Homicidal Ideation: No Goal/Treatment Plan - Goal/Treatment Plan Need for Continued Stay: Remain at risks for inpatient hospitalization, Severe depression anxiety, Discharge may exacerbated symptoms
[2018-08-28] MEDS: Latanoprost 0.005% Opht SOUTION OU SCH (22:32)
[2018-08-29] MEDS: Patient's Own Med (Cyclosporine [Restasis] 1 DROP) BOTHEYES SCH (08:14)
[2018-08-29] MEDS: Multivitamin With Minerals Tab PO SCH (08:21)
[2018-08-29] MEDS ORDERED: Pantoprazole 40 mg EC Tab PO SCH (09:00)
[2018-08-29] MEDS ORDERED: Fluconazole 150 MG TAB PO ONE (10:27)
--- NOTE | 2018-08-29 20:38 | PCM.PYCHPN ---
Psychiatric Progress Note - Psychiatric Progress Note Patient seen today, length of contact: Pt evaluated, case discussed w/ team, chart reviewed Patient Chief Complaint: reports slept better, mood is okay, denies side effects medication, was seen by dr malone-made aware by team related to malfunction of trulicity pen, rx adherent seen in milieu Problems Identified/Issues Discussed: alteration in mood and sleep Medical Problems: per chart Diagnostic Results: per psychiatry per medicine per nursing per social work per recreational therapy Medication Change: No Medical Record Reviewed: Yes Consults ordered or reviewed: pt seen by hospitalist Mental Status Examination - Cognitive Function Orientation: Person, Place, Situation, Time Memory: Intact Attention: WNL Concentration: WNL Association: WNL Fund of Knowledge: [facility] Decription of patient's judgement and insights: impaired - Mood Mood: Depressed, Anxious - Affect Affect: Constricted, Depressed - Formal Thought Process Formal Thought Process: No Impairment - Suicidal Ideation Suicidal Ideation: No - Homicidal Ideation Homicidal Ideation: No Goal/Treatment Plan - Goal/Treatment Plan Need for Continued Stay: Remain at risks for inpatient hospitalization, Severe depression anxiety, Discharge may exacerbated symptoms Progress Toward Problem(s) and Goals/Treatment Plan: inpt milieu adjust meds per status vital signs and clinical status assessment per protocol and per clinical status get up slowly falls precautions discharge planning in progress Estimated Date of D/C: 09/03/18 - Smoking Cessation Smoking Cessation Initiated: No Reason for not providing: defers
[2018-08-29] MEDS: Latanoprost 0.005% Opht SOUTION OU SCH (21:17)
[2018-08-30] MEDS: Patient's Own Med (Cyclosporine [Restasis] 1 DROP) BOTHEYES SCH (08:51)
[2018-08-30] MEDS: Multivitamin With Minerals Tab PO SCH (08:52)
--- NOTE | 2018-08-30 11:06 | PCM.PYCHPN ---
Psychiatric Progress Note - Psychiatric Progress Note Patient seen today, length of contact: Pt evaluated, case discussed w/ team, chart reviewed Patient Chief Complaint: "I'm depressed." Problems Identified/Issues Discussed: Patient continues to report feeling depressed and anxious. She continues to report poor sleep and feelings of hopelessness. We discussed increasing the Remeron, r/b/se reviewed. NO AH/VH/SI/HI. Medication Change: Yes (Increase Remeron) Medical Record Reviewed: Yes Consults ordered or reviewed: Medicine consult Mental Status Examination - Cognitive Function Orientation: Person, Place, Situation, Time Memory: Intact Attention: WNL Concentration: WNL Association: [facility] Fund of Knowledge: [facility] Decription of patient's judgement and insights: Improving I/J - Mood Mood: Depressed, Anxious - Affect Affect: Constricted, Depressed - Formal Thought Process Formal Thought Process: No Impairment Psychotic Thoughts and Behaviors: No AH/VH/paranoia/delusions - Suicidal Ideation Suicidal Ideation: No - Homicidal Ideation Homicidal Ideation: No Goal/Treatment Plan - Goal/Treatment Plan Need for Continued Stay: Remain at risks for inpatient hospitalization, Severe depression anxiety, Discharge may exacerbated symptoms Progress Toward Problem(s) and Goals/Treatment Plan: Major Depressive Disorder; Generalized Anxiety Disorder -Individual and group therapy -Medicine consult -Lexapro 20 mg PO Daily -Increase Remeron to 15 mg PO HS -Disposition planning Estimated Date of D/C: 09/02/18
[2018-08-30] MEDS ORDERED: TRULICITY 1.5 MG/0.5 ML SC ONE (18:00)
--- NOTE | 2018-08-31 08:17 | PCM.PYCHPN ---
Psychiatric Progress Note - Psychiatric Progress Note Patient seen today, length of contact: Pt evaluated, case discussed w/ team, chart reviewed Patient Chief Complaint: "I'm depressed." Problems Identified/Issues Discussed: Patient continues to report feeling depressed and anxious. She continues to report poor sleep. NO AH/VH/SI/HI. Medication Change: No Medical Record Reviewed: Yes Consults ordered or reviewed: Medicine consult Mental Status Examination - Cognitive Function Orientation: Person, Place, Situation, Time Memory: Intact Attention: WNL Concentration: WNL Association: WNL Fund of Knowledge: [facility]N Decription of patient's judgement and insights: Improving I/J - Mood Mood: Depressed, Anxious - Affect Affect: Constricted, Depressed - Formal Thought Process Formal Thought Process: No Impairment Psychotic Thoughts and Behaviors: No AH/VH/paranoia/delusions - Suicidal Ideation Suicidal Ideation: No - Homicidal Ideation Homicidal Ideation: No Goal/Treatment Plan - Goal/Treatment Plan Need for Continued Stay: Severe depression anxiety, Discharge may exacerbated sy mptoms Progress Toward Problem(s) and Goals/Treatment Plan: Major Depressive Disorder; Generalized Anxiety Disorder -Individual and group therapy -Medicine consult -Continue Lexapro 20 mg PO Daily -Continue Remeron 15 mg PO HS -Disposition planning Estimated Date of D/C: 09/02/18
[2018-08-31] MEDS: Multivitamin With Minerals Tab PO SCH (09:06)
[2018-08-31] MEDS: Patient's Own Med (Cyclosporine [Restasis] 1 DROP) BOTHEYES SCH (09:07)
--- NOTE | 2018-08-31 10:29 | CP.PCM.PCO ---
Assessment/Plan - Assessment and Plan (Free Text) Assessment: rn called with urine culture results, not uti, part of vaginal rodrick, <50k. patient with vaginal itching. Possibly azucena. diflucan 150mg x 1 ordered.
[2018-08-31] MEDS: DEXILANT 60 MG PO SCH (13:44)
[2018-08-31] MEDS: Latanoprost 0.005% Opht SOUTION OU SCH (21:28)
[2018-09-01] MEDS: Patient's Own Med (Cyclosporine [Restasis] 1 DROP) BOTHEYES SCH (08:51)
[2018-09-01] MEDS: DEXILANT 60 MG PO SCH (08:51)
[2018-09-01] MEDS: Multivitamin With Minerals Tab PO SCH (08:52)
--- NOTE | 2018-09-01 09:33 | PCM.PYCHPN ---
Psychiatric Progress Note - Psychiatric Progress Note Patient seen today, length of contact: Pt evaluated, case discussed w/ team, chart reviewed Patient Chief Complaint: "I'm depressed." Problems Identified/Issues Discussed: Patient reports that she feels less anxious and depressed. She states that her sleep is improving. NO AH/VH/SI/HI. Medication Change: No Medical Record Reviewed: Yes Consults ordered or reviewed: Medicine consult Mental Status Examination - Cognitive Function Orientation: Person, Place, Situation, Time Memory: Intact Attention: WNL Concentration: WNL Association: WNL Fund of Knowledge: [facility] Decription of patient's judgement and insights: Good I/J - Mood Mood: Depressed, Anxious - Affect Affect: Constricted - Formal Thought Process Formal Thought Process: No Impairment Psychotic Thoughts and Behaviors: No AH/VH/paranoia/delusions - Suicidal Ideation Suicidal Ideation: No - Homicidal Ideation Homicidal Ideation: No Goal/Treatment Plan - Goal/Treatment Plan Need for Continued Stay: Severe depression anxiety, Discharge may exacerbated symptoms Progress Toward Problem(s) and Goals/Treatment Plan: Major Depressive Disorder; Generalized Anxiety Disorder -Individual and group therapy -Medicine consult -Continue Lexapro 20 mg PO Daily -Continue Remeron 15 mg PO HS -Disposition planning- likely discharge tomorrow as patient is improving clinically Estimated Date of D/C: 09/02/18
--- NOTE | 2018-09-01 16:04 | CP.PCM.PN ---
Subjective - Date & Time of Evaluation Date of Evaluation: 09/01/18 Time of Evaluation: 11:00 - Subjective Subjective: patient seen and examined at bedside. Interim events noted No complaints offered at this time denies cp/sob/fever/chills. available diagnostic data reviewed Objective Vital Signs Stable - Constitutional Appears: Non-toxic, No Acute Distress - Head Exam Head Exam: NORMAL INSPECTION - Eye Exam Eye Exam: Normal appearance - Respiratory Exam Respiratory Exam: NORMAL BREATHING PATTERN - Cardiovascular Exam Cardiovascular Exam: +S1, +S2 - GI/Abdominal Exam GI & Abdominal Exam: Soft - Neurological Exam Neurological Exam: Alert, Awake - Psychiatric Exam Psychiatric exam: Normal Affect, Normal Mood - Skin Skin Exam: Normal Color, Warm Assessment and Plan monitor vitals Cont meds Cont tx psych management rest of plan as ordered
[2018-09-01] MEDS: Latanoprost 0.005% Opht SOUTION OU SCH (21:32)
[2018-09-02 06:08] VITALS: BP 135/77; PULSE 69; RESP 18; TEMP 97.1
--- NOTE | 2018-09-02 08:13 | PCM.PYCHDC ---
Mental Status Examination - Mental Status Examination Orientation: Person, Place, Situation, Time Memory: Intact Mood: Neutral Affect: Broad Speech: Appropriate Attention: WNL Concentration: WNL Association: WNL Fund of Knowledge: WNL Formal Thought Process: No Impairment Description of patient's judgement and insight: Good I/J Psychotic Thoughts and Behaviors: No AH/VH/paranoia/delusions Suicidal Ideation: No Current Homicidal Ideation?: No Discharge Summary - Discharge Note Reason for Hospitalization: HPI: 63 yo [place] female, w/ h/o depression, presents w/ worsening depression, passive wishes she would , sleep/appetite disturbances, anhedonia, hopelessness and low motivation. She reports that she has been having marital discord which causes increased stress and anxiety. PPHx: H/o depression and anxiety; History of 2 suicide attempts by overdoses on medication (19 yrs old, 20s). Receives psychiatric treatment from D. Currently taking Lexapro 20 mg PO Daily. She was previously prescribed Risperdal 0.5 mg PO HS for psychosis after she was admitted to [facility] in 06/10, but has not had any recent psychotic symptoms. She also takes Trazodone intermittently. PMHx: HTN, HLD, DM, chronic back pain; Jul 2018- spinal surgery ALL: Codeine, Morphine, PCN, latex, hydromorphone SH: From [place], 3 adult children, in 3rd marriage, unemployed on disability, denies drugs/etoh/cig use Consultations:: List each consultation separately and include: 1. Reason for request. 2. Findings. 3. Follow-up Consultations: Medicine consult Summary of Hospital Course include:: 1. Description of specific treatment plan utilized for patients during their course of treatmen. 2. Summarize the time- course for resolution of acute symptoms and/or regressed behaviors. 3. Describe issues identified and worked on during hospitalization. 4. Describe medication utilized. 5. Describe medical problems identified and treated. 6. Reassessment of suicide risk Summary of Hospital Course: Patient was admitted to the psychiatry unit. Individual and group therapy were provided. Patient was stabilized on Lexapro 20 mg PO Daily and Remeron 15 mg PO HS. She reports improvement in mood. She denies acute depression/anxiet y/AH/VH/SI/HI. She is currently psychiatrically stable for discharge with outpatient follow-up. - Diagnosis (1) Major depressive disorder Current Visit: No Status: Chronic - Final Diagnosis (DSM 5) Condition upon Discharge: STABLE DSM 5: Major Depressive Disorder; Generalized Anxiety Disorder Disposition: HOME/ ROUTINE Follow-up Treatment Plan: Major Depressive Disorder; Generalized Anxiety Disorder -Individual and group therapy -Medicine consult -Continue Lexapro 20 mg PO Daily -Continue Remeron 15 mg PO HS -Continue Ativan 0.5 mg PRN Anxiety -Discharge to home with outpatient follow-up Prescriptions/Medication Reconciliation: Clotrimazole 1% Vaginal [Lotrimin 1% Vaginal] 1 applic VG HS #1 tube Escitalopram [Lexapro] 20 mg PO DAILY #30 tab LORazepam [Ativan] 0.5 mg PO HS PRN #14 tab PRN Reason: Anxiety Mirtazapine [Remeron] 15 mg PO HS #30 tab - Smoking Cessation Smoking Cessation Medication prescribed: No Reason for not providing: Not indicated - Antipsychotic Medications Pt discharged on 2 or more routine antipsychotic medications: No
[2018-09-02] MEDS: Patient's Own Med (Cyclosporine [Restasis] 1 DROP) BOTHEYES SCH (08:46)
[2018-09-02] MEDS: Multivitamin With Minerals Tab PO SCH (08:48)
[2018-09-02] MEDS: DEXILANT 60 MG PO SCH (08:48)
== END 2018-09-02 11:00 | disposition home or self-care (01) | DRG 881 ==
LOC: H.ER 15:25 → H.STEP 23:00
PROVIDERS: ADMIT Psychiatry & Neurology Psychiatry; ATTEND Psychiatry & Neurology Psychiatry
PROC: GZHZZZZ Group Psychotherapy (ICD-10-PCS; principal; 2018-08-25)
PROC: GZ58ZZZ Individual Psychotherapy, Cognitive-Behavioral (ICD-10-PCS; 2018-08-25)
DX: F32.9 Major depressive disorder, single episode, unspecified (principal); R45.851 Suicidal ideations; F41.1 Generalized anxiety disorder; Z91.19 Patient's noncompliance with other medical treatment and regimen; Z91.5 Personal history of self-harm; I34.1 Nonrheumatic mitral (valve) prolapse; E11.9 Type 2 diabetes mellitus without complications; I10 Essential (primary) hypertension; B37.3 Candidiasis of vulva and vagina; G89.29 Other chronic pain; M54.5 Low back pain; E78.5 Hyperlipidemia, unspecified; E78.00 Pure hypercholesterolemia, unspecified; J45.909 Unspecified asthma, uncomplicated; D64.9 Anemia, unspecified; M19.90 Unspecified osteoarthritis, unspecified site; Z79.84 Long term (current) use of oral hypoglycemic drugs; Z79.899 Other long term (current) drug therapy; Z88.0 Allergy status to penicillin; Z88.6 Allergy status to analgesic agent; Z91.040 Latex allergy status

== ENCOUNTER 2018-11-29 17:51 | Inpatient (IN) | payer MEDICARE, MEDICAID ==
[2018-11-29 17:51] VITALS: BMI 32.9
[2018-11-29 19:47] LABS: BASO % 0.4 % (0.0-2.0); EOS # 0.2 K/uL (0.0-0.7); EOS % 2.7 % (0.0-4.0); HEMOGLOBIN 12.4 g/dL (12.0-16.0); LYMPH # 2.7 K/uL (1.0-4.3); LYMPH % 34.8 % (20.0-40.0); MEAN CELL VOLUME 87.4 fl (81.0-99.0); MEAN CORPUSCULAR HEMOGLOBIN 28.9 pg (27.0-31.0); MEAN CORPUSCULAR HGB CONC 33.1 g/dL (33.0-37.0); MONO # 0.8 K/uL (0.0-0.8); MONO % 10.6 % (0.0-10.0); NEUT # 3.9 K/uL (1.8-7.0); NEUT % 51.5 % (50.0-75.0); NRBC % 0.1 % (0.0-0.0); RBC 4.3 Mil/uL (3.80-5.20); RED CELL DISTRIBUTION WIDTH 14.4 % (11.5-14.5); WHITE BLOOD COUNT 7.7 K/uL (4.8-10.8)
[2018-11-29 19:58] LABS: ALB/GLOB RATIO 1.4 (1.0-2.1); ALBUMIN 4.6 g/dL (3.5-5.0); ALT/SGPT 152 U/L (9-52); AST/SGOT 99 U/L (14-36); BLOOD UREA NITROGEN 23 mg/dl (7-17); CALCIUM 9.8 mg/dL (8.4-10.2); GFR NON-AFRICAN AMERICAN > 60
[2018-11-29 20:16] LABS: SQUAMOUS EPITHIAL 3 /hpf (0-5); URINE BACTERIA RARE (<OCC); URINE BILIRUBIN NEGATIVE (NEGATIVE); URINE BLOOD NEGATIVE (NEGATIVE); URINE CLARITY CLOUDY (Clear); URINE COLOR YELLOW (YELLOW); URINE GLUCOSE (UA) NEG (NEGATIVE); URINE HYALINE CAST >20 /hpf (0-2); URINE LEUKOCYTE ESTERASE SMALL Leu/uL (Negative); URINE PROTEIN NEGATIVE (NEGATIVE); URINE UROBILINOGEN 0.2-1.0 mg/dL (0.2-1.0)
[2018-11-29] MEDS ORDERED: Sodium Chloride 0.9% 1,000 ML IV STA (20:20)
[2018-11-29] MEDS ORDERED: Sodium Chloride 0.9% 50 ML IV ONE (22:38)
[2018-11-29] MEDS ORDERED: Iohexol 300 100 ML IJ ONE (22:38)
--- NOTE | 2018-11-29 22:45 | ED PDOC ---
HPI: Chest Pain Time Seen by Provider: 11/29/18 19:19 Chief Complaint (Nursing): Chest Pain Chief Complaint (Provider): Chest Pain History Per: Patient History/Exam Limitations: no limitations Onset/Duration Of Symptoms: Days (3X) Current Symptoms Are (Timing): Still Present Additional Complaint(s): 63 year old female with a past medical history of diabetes, hypertension, and anxiety presents to the ED with abdominal pain, nausea, and vomiting onset 3X days. Patient states that she developed upper abdominal pain 3 days ago. Patient states that she feels full every time she eats but she vomits whatever she eats every time. Patient reports that she is unable to tolerate fluids. Patient reports that the pain has started to radiate to her mid to lower back. Patient states that she feels dizzy, weak and chest discomfort. PMD: Duc Topete MD Past Medical History Reviewed: Historical Data Vital Signs: Last Vital Signs Temp 98.4 F 11/29/18 18:02 Pulse 105 H 11/29/18 18:02 Resp 18 11/29/18 18:02 BP 134/88 11/29/18 18:02 Pulse Ox 98 11/29/18 18:02 LEONIDES Report Viewed: Yes - Medical History PMH: Anemia, Anxiety, Arthritis, Asthma, Depression, Gastritis, HTN, Hyperch olesterolemia, Mitral Valve Prolapse, Pancreatitis Denies: CHF, COPD, Diabetes, Hepatitis, HIV, Hypothyroidism, Chronic Kidney Disease, Rheumatoid Arthritis, Seizures, Sexually Transmitted Disease - Surgical History Surgical History: Appendectomy - Family History Family History: States: No Known Family Hx - Social History Ex-Smoker (has not smoked in the last 12 months): Yes Alcohol: None Drugs: Denies - Home Medications Home Medications: Ambulatory Orders Medication Instructions Recorded cycloSPORINE [Restasis] 1 drop BOTHEYES DAILY 04/11/17 Multivitamin [Multi-Vitamin Daily] 1 tab PO DAILY 04/16/17 Dulaglutide [Trulicity] 1.5 mg SC QWK 06/23/18 Latanoprost 0.005% Opht [Xalatan 1 drop OU HS 06/23/18 Opht] traMADol [Ultram] 50 mg PO Q6 PRN #20 tab 08/13/18 Dexlansoprazole [Dexilant] 60 mg PO DAILY 08/26/18 Atorvastatin [Lipitor] 20 mg PO HS tab 09/01/18 Clotrimazole 1% Vaginal [Lotrimin 1 applic VG HS #1 tube 09/01/18 1% Vaginal] Escitalopram [Lexapro] 20 mg PO DAILY #30 tab 09/01/18 LORazepam [Ativan] 0.5 mg PO HS PRN #14 tab 09/01/18 Losartan [Cozaar] 50 mg PO DAILY tab 09/01/18 MetFORMIN [glucoPHAGE] 1,000 mg PO BIDWM tab 09/01/18 Mirtazapine [Remeron] 15 mg PO HS #30 tab 09/01/18 - Allergies Allergies/Adverse Reactions: Allergies Allergy/AdvReac Type Severity Reaction Status Date / Time codeine Allergy RASH Verified 11/29/18 18:02 hydromorphone [From Dilaudid] Allergy RASH Verified 11/29/18 18:02 latex Allergy RASH Verified 11/29/18 18:02 morphine Allergy RASH Verified 11/29/18 18:02 Penicillins Allergy RASH Verified 11/29/18 18:02 Review of Systems ROS Statement: Except As Marked, All Systems Reviewed And Found Negative Cardiovascular: Positive for: Other (Chest Discomfort ) Gastrointestinal: Positive for: Nausea, Vomiting, Abdominal Pain (upper) Neurological: Positive for: Weakness, Dizziness Physical Exam - Reviewed Nursing Documentation Reviewed: Yes Vital Signs Reviewed: Yes - Physical Exam Appears: Positive for: Uncomfortable Head Exam: Positive for: ATRAUMATIC, NORMOCEPHALIC Skin: Positive for: Normal Color, Warm, Dry Eye Exam: Positive for: Normal appearance, EOMI, PERRL ENT: Positive for: Other (Mucous membranes dry ) Neck: Positive for: Normal, Painless ROM, Supple Cardiovascular/Chest: Positive for: Regular Rate, Rhythm. Negative for: Murmur Respiratory: Positive for: Normal Breath Sounds. Negative for: Respiratory Distress Gastrointestinal/Abdominal: Positive for: Tenderness (right upper quadrant), Other ([place] sign ) Back: Positive for: Normal Inspection. Negative for: L CVA Tenderness, Other (midline tenderness ) Extremity: Positive for: Normal ROM (upper and Lower). Negative for: Pedal Edema, Deformity Neurological/Psych: Positive for: Awake, Normal Tone, Oriented. Negative for: Motor/Sensory Deficits - Laboratory Results Result Diagrams: 11/29/18 19:41 04/08/19 19:41 Lab Results: Troponin I 0.0220 ng/mL (0.00-0.120) 11/29/18 19:41 Total Bilirubin 0.4 mg/dl (0.2-1.3) 11/29/18 19:41 AST 99 U/L (14-36) H D 11/29/18 19:41 ALT 152 U/L (9-52) H D 11/29/18 19:41 Alkaline Phosphatase 191 U/L (38-126) H D 11/29/18 19:41 Total Protein 7.9 G/DL (6.3-8.2) 11/29/18 19:41 Albumin 4.6 g/dL (3.5-5.0) 11/29/18 19:41 Globulin 3.3 gm/dL (2.2-3.9) 11/29/18 19:41 Albumin/Globulin Ratio 1.4 (1.0-2.1) 11/29/18 19:41 Lipase 139 U/L (23-300) 11/29/18 20:57 Urine Color Yellow (YELLOW) 11/29/18 19:41 Urine Clarity Cloudy (Clear) 11/29/18 19:41 Urine pH 6.0 (5.0-8.0) 11/29/18 19:41 Ur Specific [place] 1.014 (1.003-1.030) 11/29/18 19:41 Urine Protein Negative mg/dL (NEGATIVE) 11/29/18 19:41 Urine Glucose (UA) Neg mg/dL (NEGATIVE) 11/29/18 19:41 Urine Ketones Negative mg/dL (NEGATIVE) 11/29/18 19:41 Urine Blood Negative (NEGATIVE) 11/29/18 19:41 Urine Nitrate Negative (NEGATIVE) 11/29/18 19:41 Urine Bilirubin Negative (NEGATIVE) 11/29/18 19:41 Urine Urobilinogen 0.2-1.0 mg/dL (0.2-1.0) 11/29/18 19:41 Ur Leukocyte Esterase Small [place]/uL (Negative) 11/29/18 19:41 Urine RBC (Auto) 2 /hpf (0-3) 11/29/18 19:41 Urine Microscopic WBC 6 /hpf (0-5) H 11/29/18 19:41 Ur Squamous Epith Cells 3 /hpf (0-5) 11/29/18 19:41 Urine Bacteria Rare (<OCC) 11/29/18 19:41 Hyaline Casts >20 /hpf (0-2) H 11/29/18 19:41 - ECG O2 Sat by Pulse Oximetry: 98 (RA) Pulse Ox Interpretation: Normal Medical Decision Making Medical Decision Making: Time: : Initial Impression: 63 year old female with abdominal pain, nausea and vomiting. Plan: -Adomen and Plvis IV contrast only -Electrocardiogram -Complete metabolic panel -Lipase -Troponin 1 -CBC with Differential -Diclycomine -Sodium Chloride 0.9% Iv 1000 ml -Famotidine 20 mg IV -Ketorolac 15 mg IVP -Onadansetron 4 mg IV -Heplock insertion IV -Urinalysis STAT\ -Gallbladder and Pancreas US -re-evaluate 2135 Gallbladder and Pancreas US FINDINGS: LIVER: There is mild hepatomegaly. The liver measured 16.7 cm in the midclavicular line. There is increased hepatic echogenicity compatible with steatosis. No mass. GALLBLADDER: The gallbladder appears within normal limits. No gallbladder wall thickening or pericholecystic fluid. COMMON BILE DUCT: Within normal limits in size. 3.8 mm in transverse caliber. PANCREAS: The visualized pancreas appears within normal limits. The distal pancreas is obscured by bowel gas. RIGHT KIDNEY: Unremarkable. Normal renal contours. No renal mass or calculus. No hydronephrosis. IMPRESSION: 1. Mild hepatomegaly with associated steatosis. 2225 Patient complains of persistent pain. CT abdomen/pelvis with IV contrast ordered. 2330 CT Abdomen/ Pelvis with IV Contrast FINDINGS: LUNG BASES: The lung bases appear clear. No pleural effusions are seen. LIVER: There is diffuse hepatic steatosis identified.. GALLBLADDER AND BILE DUCTS: The gallbladder appears within normal limits. No radioopaque gallstones are seen. No biliary ductal dilatation is evident. PANCREAS: Unremarkable. SPLEEN: Unremarkable. ADRENAL GLANDS: Unremarkable. KIDNEYS, URETERS, AND BLADDER: The kidneys appear within normal limits. There is no hydronephrosis or hydroureter. No urinary calculi are seen. The urinary bladder appeared normal in size and configuration. STOMACH AND BOWEL: Unremarkable appearance of the stomach. No evidence of bowel obstruction. There is mild mucosal wall thickening of the small intestinal tract with fluid in its lumen thought compatible with diffuse enteritis. Infectious or inflammatory etiologies are thought most likely. No evidence suggesting colitis. APPENDIX: No evidence of acute appendicitis on CT examination. PERITONEUM: No free fluid. No free air. LYMPH NODES: No lymphadenopathy is evident. REPRODUCTIVE: Status post hysterectomy. VASCULATURE: No evidence of abdominal aortic aneurysm. BONES: No aggressive appearing osseous lesion. No acute osseous pathology evident. There is evidence of degenerative disc disease noted at L4-5 and L5-S1. IMPRESSION: 1. Diffuse hepatic steatosis. 2. Evidence of diffuse enteritis. 3. Status post hysterectomy. 4. Evidence of degenerative disc disease at L4-5 and L5-S1. 0002 Patient complains of persistent pain. Will place on observation. Case referred to Dr. Topete. 0015 Spoke to Juanjo Barbour, nurse practitioner in Dr. Topete's office, who accepts patient. Scribe Attestation: Documented by Corey Tran, acting as a scribe for Landry Shaffer MD Provider Scribe Attestation: All medical record entries made by the Scribe were at my direction and personally dictated by me. I have reviewed the chart and agree that the record accurately reflects my personal performance of the history, physical exam, medical decision making, and the department course for this patient. Disposition - Clinical Impression Clinical Impression: Acute chest pain - Disposition Disposition Time: 22:00 Condition: FAIR - Pt Status Changed To: Hospital Disposition Of: Observation
[2018-11-30] MEDS ORDERED: DULAGLUTIDE 1.5 MG/0.5 ML SC SCH (04:45)
--- NOTE | 2018-11-30 07:55 | RAD ---
Date of service: 11/30/2018 HISTORY: chest pain COMPARISON: Chest radiographs 08/25/2018. TECHNIQUE: 1 view obtained. FINDINGS: LUNGS: No active pulmonary disease. PLEURA: No significant pleural effusion identified, no pneumothorax apparent. CARDIOVASCULAR: No aortic atherosclerotic calcification present. Normal cardiac size. No pulmonary vascular congestion. OSSEOUS STRUCTURES: No significant abnormalities. VISUALIZED UPPER ABDOMEN: Normal. OTHER FINDINGS: None. IMPRESSION: No interval acute cardiopulmonary disease appreciated.
--- NOTE | 2018-11-30 08:42 | CARD ---
APPROVED REPORT Date of service: 11/29/2018 EKG Measurement Heart [id number] <Conclusion> Sinus tachycardia Otherwise normal ECG
[2018-11-30] MEDS: Pantoprazole 40 mg EC Tab PO SCH (09:27)
[2018-11-30] MEDS: Multivitamin With Minerals Tab PO SCH (09:27)
[2018-11-30] MEDS ORDERED: Pneumococcal 23-Valent Vaccine IM ONE (09:44)
[2018-11-30] MEDS ORDERED: Glucagon Recombinant 1 mg Inj IM PRN (09:58)
[2018-11-30] MEDS ORDERED: Dextrose 50% SYRINGE Inj (50 ml) IV PRN (09:58)
--- NOTE | 2018-11-30 10:52 | US ---
Date of service: 11/29/2018 HISTORY: abd pain COMPARISON: None. TECHNIQUE: Sonographic evaluation of the right upper quadrant of the abdomen. FINDINGS: LIVER: Measures 16.7 cm in length. Hepatopedal blood flow. Fatty infiltration manifest ultrasonographically as increased echogenicity of the liver parenchyma. No mass. No intrahepatic bile duct dilatation. GALLBLADDER: Unremarkable. No gallstones. COMMON BILE DUCT: Measures 3.8 mm. No stones. No dilatation. PANCREAS: Unremarkable as visualized. No mass. No ductal dilatation. RIGHT KIDNEY: Measures 3.7 x 10.0 cm in length. Normal echogenicity. No calculus, mass, or hydronephrosis. AORTA: No aneurysmal dilatation. IVC: Unremarkable. OTHER FINDINGS: None . IMPRESSION: No significant or acute findings to account for/ related to the clinical presentation. Additional benign and/or incidental findings described above. Concordant findings (preliminary report) provided by [facility].
[2018-11-30] MEDS: Artificial Tears Opht Soln OU SCH ×4 (11:21→22:01)
--- NOTE | 2018-11-30 11:33 | CT ---
Date of service: 11/29/2018 PROCEDURE: CT Abdomen and Pelvis with contrast HISTORY: abd pain COMPARISON: None. TECHNIQUE: Following the intravenous administration of iodinated contrast material, a CT examination of the abdomen and pelvis was performed from the domes of the diaphragms to the symphysis pubis with reformatted datasets provided in axial, sagittal and coronal planes. Oral contrast was not administered as per referring physician request. Contrast dose: Omnipaque 300, 90 cc Radiation dose: Total exam DLP = 723.93 mGy-cm. This CT exam was performed using one or more of the following dose reduction techniques: Automated exposure control, adjustment of the mA and/or kV according to patient size, and/or use of iterative reconstruction technique. FINDINGS: LOWER THORAX: Small hiatal hernia identified. LIVER: Diminished attenuation seen throughout the liver compatible hepatic steatosis. There is borderline hepatomegaly. No mass or intrahepatic biliary dilatation identified. GALLBLADDER AND BILE DUCTS: Unremarkable. PANCREAS: Unremarkable. No gross lesion or ductal dilatation. SPLEEN: Unremarkable. ADRENALS: Unremarkable. No mass. KIDNEYS AND URETERS: There is a tiny lucency identified in the upper pole right kidney parenchyma too small to characterize. No obstructive uropathy bilaterally or radiodense urolithiasis. No perinephric fluid collection or reaction appreciable. VASCULATURE: Unremarkable. No aortic aneurysm. No aortic atherosclerotic calcification or mural plaque present. BOWEL: Unremarkable. No obstruction. No gross mural thickening. APPENDIX: No CT evidence of appendicitis. PERITONEUM: Unremarkable. No free fluid. No free air. LYMPH NODES: Unremarkable. No enlarged lymph nodes. BLADDER: Unremarkable. REPRODUCTIVE: Prior hysterectomy. BONES: No acute fracture. OTHER FINDINGS: None. IMPRESSION: No definite acute abdominal or pelvic findings. Hepatic steatosis. Borderline hepatomegaly Preliminary report provided by Asa, 11/29/2018, 11:30 p.m..
--- NOTE | 2018-11-30 11:38 | CP.PCM.CON ---
History of Present Illness - History of Present Illness History of Present Illness: GI CONSULT NOTE FOR DR. RYAN 63F presents to [facility] with abdominal pain. Patient states pain is located in the RUQ region and radiates to her back on both sides. She states she has had these pains before. Admits to nausea and vomiting in the hospital. She admits to having chills prior, admits to normal bowel function. Patient currently on clear liquids. PMH: HTN, DM, Pancreatitis, Gastritis PSH: Appendectomy, hysterectomy, L rotatro cuff repair, R achilles tendon repair, Perianal fistula repair Social: denies tobacco and illicit drug use, admits to social alcohol use Allergies: As seen in chart Past Patient History - Past Medical History & Family History Past Medical History?: Yes - Past Social History Smoking Status: Former Smoker - CARDIAC Hx Cardiac Disorders: Yes - PULMONARY Hx Respiratory Disorders: Yes - NEUROLOGICAL Hx Seizures: No - HEENT Hx HEENT Problems: Yes Hx Glaucoma: Yes - RENAL Hx Chronic Kidney Disease: No - ENDOCRINE/METABOLIC Hx Endocrine Disorders: Yes - HEMATOLOGICAL/ONCOLOGICAL Hx Anemia: Yes Hx Human Immunodeficiency Virus (HIV): No - INTEGUMENTARY Hx Dermatological Problems: No - MUSCULOSKELETAL/RHEUMATOLOGICAL Hx Falls: Yes - GASTROINTESTINAL Hx Gastritis: Yes Hx Pancreatitis: Yes - GENITOURINARY/GYNECOLOGICAL Hx Sexually Transmitted Disorders: No - PSYCHIATRIC Hx Psychophysiologic Disorder: Yes - SURGICAL HISTORY Hx Appendectomy: Yes - ANESTHESIA Hx Anesthesia: Yes Hx Anesthesia Reactions: No Hx Malignant Hyperthermia: No Meds Allergies/Adverse Reactions: Allergies Allergy/AdvReac Type Severity Reaction Status Date / Time codeine Allergy RASH Verified 11/29/18 18:02 hydromorphone [From Dilaudid] Allergy RASH Verified 11/29/18 18:02 latex Allergy RASH Verified 11/29/18 18:02 morphine Allergy RASH Verified 11/29/18 18:02 Penicillins Allergy RASH Verified 11/29/18 18:02 - Medications Medications: Current Medications Artificial Tears (Artificial Tears) 2 drop OU Q4H [facility] Last Admin: 11/30/18 11:21 Dose: Not Given Atorvastatin Calcium (Lipitor) 20 mg PO HS [facility] Clotrimazole (Lotrimin 1% Vaginal) 1 applic VG HS [facility] Dextrose (Dextrose 50% Inj) 0 ml IV STAT PRN; Protocol PRN Reason: Hypoglycemia Protocol Dextrose (Glutose 15) 0 gm PO ONCE PRN; Protocol PRN Reason: Hypoglycemia Protocol Escitalopram Oxalate (Lexapro) 20 mg PO DAILY [facility] Last Admin: 11/30/18 09:28 Dose: 20 mg Glucagon (Glucagen Diagnostic Kit) 0 mg IM STAT PRN; Protocol PRN Reason: Hypoglycemia Protocol Home Med (Dulaglutide [Trulicity]) 1.5 mg SC QWK [facility] Insulin Human Regular (Humulin R) 0 units SC ACHS [facility]; Protocol Latanoprost (Xalatan Opht) 1 drop OU HS [facility] Lorazepam (Ativan) 0.5 mg PO HS PRN PRN Reason: Anxiety Losartan Potassium (Cozaar) 50 mg PO DAILY [facility] Last Admin: 11/30/18 09:28 Dose: 50 mg Metformin HCl (Glucophage) 1,000 mg PO BIDWM [facility] Last Admin: 11/30/18 09:29 Dose: 1,000 mg Mirtazapine (Remeron) 15 mg PO HS [facility] Multivitamins/Minerals (Therapeutic-M Tab) 1 tab PO DAILY [facility] Last Admin: 11/30/18 09:27 Dose: 1 tab Pantoprazole Sodium (Protonix Ec Tab) 40 mg PO DAILY [facility] Last Admin: 11/30/18 09:27 Dose: 40 mg Tramadol HCl (Ultram) 50 mg PO Q6 PRN PRN Reason: Pain, moderate (4-7) Last Admin: 11/30/18 06:02 Dose: 50 mg Physical Exam - Constitutional Appears: Non-toxic, No Acute Distress - Eye Exam Eye Exam: EOMI, PERRL - ENT Exam ENT Exam: Mucous Membranes Moist - Respiratory Exam Respiratory Exam: Clear to Auscultation Bilateral, NORMAL BREATHING PATTERN - Cardiovascular Exam Cardiovascular Exam: REGULAR RHYTHM, +S1, +S2 - GI/Abdominal Exam GI & Abdominal Exam: Soft, Tenderness (RUQ tenderness, moderate). absent: Distended, Firm, Guarding, Rebound, Rigid - Extremities Exam Extremities exam: Negative for: pedal edema, tenderness - Neurological Exam Neurological exam: Alert, Oriented x3 - Psychiatric Exam Psychiatric exam: Normal Affect, Normal Mood - Skin Skin Exam: Dry, Intact, Normal Color, Warm Results - Vital Signs Recent Vital Signs: Last Vital Signs Temp 98.0 F 11/30/18 07:46 Pulse 76 11/30/18 09:28 Resp 20 11/30/18 07:46 BP 112/74 11/30/18 09:28 Pulse Ox 96 11/30/18 07:46 - Labs Result Diagrams: 11/29/18 19:41 11/29/18 19:41 Labs: Laboratory Results - last 24 hr 11/29/18 11/29/18 11/29/18 19:41 19:41 19:41 WBC 7.7 RBC 4.30 Hgb 12.4 Hct 37.6 MCV 87.4 D MCH 28.9 MCHC 33.1 RDW 14.4 Plt Count 343 MPV 9.0 Neut % (Auto) 51.5 Lymph % (Auto) 34.8 Me[place] % (Auto) 10.6 H Eos % (Auto) 2.7 Baso % (Auto) 0.4 Neut # (Auto) 3.9 Lymph # (Auto) 2.7 [place] # (Auto) 0.8 Eos # (Auto) 0.2 Baso # (Auto) 0.0 Sodium 137 Potassium 3.9 Chloride 93 L Carbon Dioxide 31 H Anion Gap 17 BUN 23 H Creatinine 0.8 Est GFR ( Amer) > 60 Est GFR (Non-Af Amer) > 60 POC Glucose (mg/dL) Random Glucose 139 H Lactic Acid Calcium 9.8 Total Bilirubin 0.4 AST 99 H D ALT 152 H D Alkaline Phosphatase 191 H D Troponin I 0.0220 Total Protein 7.9 Albumin 4.6 Globulin 3.3 Albumin/Globulin Ratio 1.4 Lipase Urine Color Yellow Urine Clarity Cloudy Urine pH 6.0 Ur Specific [place] 1.014 Urine Protein Negative Urine Glucose (UA) Neg Urine Ketones Negative Urine Blood Negative Urine Nitrate Negative Urine Bilirubin Negative Urine Urobilinogen 0.2-1.0 Ur Leukocyte Esterase Small Urine RBC (Auto) 2 Urine Microscopic WBC 6 H Ur Squamous Epith Cells 3 Urine Bacteria Rare Hyaline Casts >20 H 11/29/18 11/30/18 11/30/18 20:57 04:46 10:30 WBC RBC Hgb Hct MCV MCH MCHC RDW Plt Count MPV Neut % (Auto) Lymph % (Auto) [place] % (Auto) Eos % (Auto) Baso % (Auto) Neut # (Auto) Lymph # (Auto) [place] # (Auto) Eos # (Auto) Baso # (Auto) Sodium Potassium Chloride Carbon Dioxide Anion Gap BUN Creatinine Est GFR ( Amer) Est GFR (Non-Af Amer) POC Glucose (mg/dL) Random Glucose Lactic Acid 2.2 H Calcium Total Bilirubin AST ALT Alkaline Phosphatase Troponin I 0.0170 Total Protein Albumin Globulin Albumin/Globulin Ratio Lipase 139 Urine Color Urine Clarity Urine pH Ur Specific [place] Urine Protein Urine Glucose (UA) Urine Ketones Urine Blood Urine Nitrate Urine Bilirubin Urine Urobilinogen Ur Leukocyte Esterase Urine RBC (Auto) Urine Microscopic WBC Ur Squamous Epith Cells Urine Bacteria Hyaline Casts 11/30/18 10:54 WBC RBC Hgb Hct MCV MCH MCHC RDW Plt Count MPV Neut % (Auto) Lymph % (Auto) [place] % (Auto) Eos % (Auto) Baso % (Auto) Neut # (Auto) Lymph # (Auto) [place] # (Auto) Eos # (Auto) Baso # (Auto) Sodium Potassium Chloride Carbon Dioxide Anion Gap BUN Creatinine Est GFR ( Amer) Est GFR (Non-Af Amer) POC Glucose (mg/dL) 127 H Random Glucose Lactic Acid Calcium Total Bilirubin AST ALT Alkaline Phosphatase Troponin I Total Protein Albumin Globulin Albumin/Globulin Ratio Lipase Urine Color Urine Clarity Urine pH Ur Specific [place] Urine Protein Urine Glucose (UA) Urine Ketones Urine Blood Urine Nitrate Urine Bilirubin Urine Urobilinogen Ur Leukocyte Esterase Urine RBC (Auto) Urine Microscopic WBC Ur Squamous Epith Cells Urine Bacteria Hyaline Casts Assessment & Plan - Assessment and Plan (Free Text) Assessment: 63F with gastroenter[address] CT findings of hepatic steatosis also US negative for gallbladder disease Plan: - Advance diet as tolerated - Pain control, anti-emetics - Pt on home PPI - IV fluids - serial abdominal exams - Further rec per Dr. Esteban Guy, PGY3
[2018-11-30] MEDS ORDERED: Ciprofloxacin 200mg/100ml D5W 100 ML IVPB SCH (12:15)
[2018-11-30] MEDS: Sodium Chloride 0.9% 1,000 ML IV SCH ×2 (12:17→23:56)
[2018-11-30] MEDS: Insulin Regular 100 units/ml SC SCH ×3 (12:19→22:05)
[2018-11-30 17:58] LABS: BASO % 0.5 % (0.0-2.0); EOS # 0.2 K/uL (0.0-0.7); EOS % 3.7 % (0.0-4.0); HEMOGLOBIN 11.2 g/dL (12.0-16.0); LYMPH # 2.1 K/uL (1.0-4.3); LYMPH % 40.5 % (20.0-40.0); MEAN CELL VOLUME 87.5 fl (81.0-99.0); MEAN CORPUSCULAR HEMOGLOBIN 29.3 pg (27.0-31.0); MEAN CORPUSCULAR HGB CONC 33.5 g/dL (33.0-37.0); MEAN PLATELET VOLUME 7.9 fl (7.2-11.7); MONO # 0.5 K/uL (0.0-0.8); NEUT # 2.4 K/uL (1.8-7.0); NEUT % 45.3 % (50.0-75.0); NRBC % 0.2 % (0.0-0.0); RBC 3.82 Mil/uL (3.80-5.20); RED CELL DISTRIBUTION WIDTH 14.9 % (11.5-14.5); WHITE BLOOD COUNT 5.3 K/uL (4.8-10.8)
[2018-11-30 18:13] LABS: ALB/GLOB RATIO 1.5 (1.0-2.1); ALBUMIN 4.1 g/dL (3.5-5.0); ALT/SGPT 124 U/L (9-52); AST/SGOT 70 U/L (14-36); BLOOD UREA NITROGEN 19 mg/dl (7-17); CALCIUM 8.7 mg/dL (8.4-10.2); GFR NON-AFRICAN AMERICAN > 60
[2018-11-30] MEDS: Ciprofloxacin 400mg/200ml D5W 400 MG/200 ML BAG IVPB SCH (22:00)
[2018-11-30] MEDS: Latanoprost 0.005% Opht SOUTION OU SCH (22:04)
[2018-12-01] MEDS: Artificial Tears Opht Soln OU SCH ×6 (00:15→21:25)
--- NOTE | 2018-12-01 01:22 | CP.PCM.HP ---
History of Present Illness - History of Present Illness History of Present Illness: CC: Chest Pain, abdominal pain, N/V. HPI: 63 y/o female with a PMH of hypercholesterolemia and pancreatitis presented to the ED with chest pain, abdominal pain, N/V. As per the pt, she is unable to tolerate any type of food and reports bilious-like drainage during vomiting episodes. CT Abdomen revealed diffuse enteritis. EKG and troponins were negative. PMH: Anemia, Anxiety, Arthritis, Asthma, Depression, Gastritis, HTN, Hypercholesterolemia, Mitral Valve Prolapse, Pancreatitis, Smoker. PSH: Appendectomy. Allergies: Codeine, hydromorphone, latex, morphine, PCN. Subjective Review of Systems: Reviewed and no additional remarkable complaints abdominal pain. Objective Vital Signs Stable Appears: Non-toxic, No Acute Distress. Head Exam: NORMAL INSPECTION, normocephalic. Eye Exam: Normal eye inspection, EOMI, PERRLA. Respiratory Exam: NORMAL BREATHING PATTERN, breath sounds clear to auscultation. Cardiovascular Exam: +S1, +S2. RRR. GI & Abdominal Exam: Soft, tenderness in the right upper quadrant, midly- distended. Neurological Exam: Alert, Awake, Oriented x3. Musculoskeletal Exam: 5/5 BUE strength, 5/5 BLE strength. Psychiatric exam: Normal Affect, Normal Mood, Calm and cooperative. Skin Exam: Normal Color, Warm, Dry. Assessment/Impression/Plan: 1.) Enteritis/Abdominal Pain -CT abdomen and pelvis revealed diffuse enteritis, hepatic steatosis, however gall bladder appeared within normal limits. -Empiric antibiotic therapy. Monitor for leukocytosis. -IVF hydration + Zofran 4 mg. -Clear liquids for now. -GI consult input appreciated. 2.) Chest Pain -Troponins x 2 negative. -EKG showed sinus tachycardia, otherwise unremarkable. -Pt states chest pain has subsided. Present on Admission - Present on Admission Any Indicators Present on Admission: No Past Patient History - Past Medical History & Family History Past Medical History?: Yes - Past Social History Smoking Status: Former Smoker - CARDIAC Hx Cardiac Disorders: Yes - PULMONARY Hx Respiratory Disorders: Yes - NEUROLOGICAL Hx Seizures: No - HEENT Hx HEENT Problems: Yes Hx Glaucoma: Yes - RENAL Hx Chronic Kidney Disease: No - ENDOCRINE/METABOLIC Hx Endocrine Disorders: Yes - HEMATOLOGICAL/ONCOLOGICAL Hx Anemia: Yes Hx Human Immunodeficiency Virus (HIV): No - INTEGUMENTARY Hx Dermatological Problems: No - MUSCULOSKELETAL/RHEUMATOLOGICAL Hx Falls: Yes - GASTROINTESTINAL Hx Gastritis: Yes Hx Pancreatitis: Yes - GENITOURINARY/GYNECOLOGICAL Hx Sexually Transmitted Disorders: No - PSYCHIATRIC Hx Psychophysiologic Disorder: Yes - SURGICAL HISTORY Hx Appendectomy: Yes - ANESTHESIA Hx Anesthesia: Yes Hx Anesthesia Reactions: No Hx Malignant Hyperthermia: No Meds Allergies/Adverse Reactions: Allergies Allergy/AdvReac Type Severity Reaction Status Date / Time codeine Allergy RASH Verified 11/29/18 18:02 hydromorphone [From Dilaudid] Allergy RASH Verified 11/29/18 18:02 latex Allergy RASH Verified 11/29/18 18:02 morphine Allergy RASH Verified 11/29/18 18:02 Penicillins Allergy RASH Verified 11/29/18 18:02 Results - Vital Signs Recent Vital Signs: Last Vital Signs Temp 98.2 F 12/01/18 00:42 Pulse 73 12/01/18 00:42 Resp 18 12/01/18 00:42 BP 123/74 12/01/18 00:42 Pulse Ox 97 12/01/18 00:42 - Labs Result Diagrams: 11/30/18 17:30 11/30/18 17:30 Labs: Laboratory Results - last 24 hr 11/30/18 11/30/18 11/30/18 04:46 10:30 10:54 WBC RBC Hgb Hct MCV MCH MCHC RDW Plt Count MPV Neut % (Auto) Lymph % (Auto) Chase % (Auto) Eos % (Auto) Baso % (Auto) Neut # (Auto) Lymph # (Auto) [place] # (Auto) Eos # (Auto) Baso # (Auto) Sodium Potassium Chloride Carbon Dioxide Anion Gap BUN Creatinine Est GFR ( Amer) Est GFR (Non-Af Amer) POC Glucose (mg/dL) 127 H Random Glucose Lactic Acid 2.2 H Calcium Total Bilirubin AST ALT Alkaline Phosphatase Troponin I 0.0170 Total Protein Albumin Globulin Albumin/Globulin Ratio 11/30/18 11/30/18 11/30/18 15:58 17:30 17:30 WBC 5.3 RBC 3.82 Hgb 11.2 L Hct 33.4 L MCV 87.5 MCH 29.3 MCHC 33.5 RDW 14.9 H Plt Count 299 MPV 7.9 Neut % (Auto) 45.3 L Lymph % (Auto) 40.5 H [place] % (Auto) 10.0 Eos % (Auto) 3.7 Baso % (Auto) 0.5 Neut # (Auto) 2.4 Lymph # (Auto) 2.1 [place] # (Auto) 0.5 Eos # (Auto) 0.2 Baso # (Auto) 0.0 Sodium 137 Potassium 4.0 Chloride 97 L Carbon Dioxide 33 H Anion Gap 11 BUN 19 H Creatinine 0.8 Est GFR ( Amer) > 60 Est GFR (Non-Af Amer) > 60 POC Glucose (mg/dL) 89 Random Glucose 77 Lactic Acid Calcium 8.7 Total Bilirubin 0.3 AST 70 H D ALT 124 H Alkaline Phosphatase 161 H Troponin I Total Protein 6.8 Albumin 4.1 Globulin 2.7 Albumin/Globulin Ratio 1.5 11/30/18 21:17 WBC RBC Hgb Hct MCV MCH MCHC RDW Plt Count MPV Neut % (Auto) Lymph % (Auto) [place] % (Auto) Eos % (Auto) Baso % (Auto) Neut # (Auto) Lymph # (Auto) [place] # (Auto) Eos # (Auto) Baso # (Auto) Sodium Potassium Chloride Carbon Dioxide Anion Gap BUN Creatinine Est GFR ( Amer) Est GFR (Non-Af Amer) POC Glucose (mg/dL) 152 H Random Glucose Lactic Acid Calcium Total Bilirubin AST ALT Alkaline Phosphatase Troponin I Total Protein Albumin Globulin Albumin/Globulin Ratio Assessment & Plan (1) Enteritis Status: Acute (2) Abdominal pain Status: Acute (3) Chest pain Status: Acute
[2018-12-01] MEDS: Insulin Regular 100 units/ml SC SCH ×4 (07:40→22:30)
[2018-12-01] MEDS: Ciprofloxacin 400mg/200ml D5W 400 MG/200 ML BAG IVPB SCH ×2 (09:03→21:22)
[2018-12-01] MEDS: Multivitamin With Minerals Tab PO SCH (09:06)
[2018-12-01] MEDS: Sodium Chloride 0.9% 1,000 ML IV SCH (09:06)
[2018-12-01] MEDS: Pantoprazole 40 mg EC Tab PO SCH (09:06)
--- NOTE | 2018-12-01 12:20 | CP.PCM.PN ---
Subjective - Date & Time of Evaluation Date of Evaluation: 12/01/18 Time of Evaluation: 12:17 - Subjective Subjective: GI NOTE FOR DR. RYAN 63F seen and examined at bedside. Patient states pain is improving. No complains of diarrhea, denies nausea or vomiting. Tolerating current diet. Objective - Vital Signs/Intake and Output Vital Signs (last 24 hours): Temp Pulse Resp BP Pulse Ox 98 F 78 18 110/65 99 12/01/18 12:08 12/01/18 12:08 12/01/18 12:08 12/01/18 12:08 12/01/18 12:08 - Medications Medications: Current Medications Artificial Tears (Artificial Tears) 2 drop OU Q4H [facility] Last Admin: 12/01/18 09:03 Dose: 2 drop Atorvastatin Calcium (Lipitor) 20 mg PO HS [facility] Last Admin: 11/30/18 22:03 Dose: 20 mg Clotrimazole (Lotrimin 1% Vaginal) 1 applic VG HS [facility] Last Admin: 11/30/18 22:02 Dose: 1 applic Dextrose (Dextrose 50% Inj) 0 ml IV STAT PRN; Protocol PRN Reason: Hypoglycemia Protocol Dextrose (Glutose 15) 0 gm PO ONCE PRN; Protocol PRN Reason: Hypoglycemia Protocol Escitalopram Oxalate (Lexapro) 20 mg PO DAILY [facility] Last Admin: 12/01/18 09:05 Dose: 20 mg Glucagon (Glucagen Diagnostic Kit) 0 mg IM STAT PRN; Protocol PRN Reason: Hypoglycemia Protocol Home Med (Dulaglutide [Trulicity]) 1.5 mg SC QWK [facility] Ciprofloxacin (Cipro 400mg/200ml Dsw) 400 mg in 200 mls @ 200 mls/hr IVPB Q12 S ; Protocol Last Admin: 12/01/18 09:03 Dose: 200 mls/hr Insulin Human Regular (Humulin R) 0 units SC ACHS [facility]; Protocol Last Admin: 12/01/18 07:40 Dose: Not Given Latanoprost (Xalatan Opht) 1 drop OU HS [facility] Last Admin: 11/30/18 22:04 Dose: 1 drop Lorazepam (Ativan) 0.5 mg PO HS PRN PRN Reason: Anxiety Losartan Potassium (Cozaar) 50 mg PO DAILY [facility] Last Admin: 12/01/18 09:11 Dose: 50 mg Metformin HCl (Glucophage) 1,000 mg PO BIDWM [facility] Last Admin: 11/30/18 09:29 Dose: 1,000 mg Mirtazapine (Remeron) 15 mg PO HS [facility] Last Admin: 11/30/18 22:03 Dose: 15 mg Multivitamins/Minerals (Therapeutic-M Tab) 1 tab PO DAILY [facility] Last Admin: 12/01/18 09:06 Dose: 1 tab Pantoprazole Sodium (Protonix Ec Tab) 40 mg PO DAILY [facility] Last Admin: 12/01/18 09:06 Dose: 40 mg Tramadol HCl (Ultram) 50 mg PO Q6 PRN PRN Reason: Pain, moderate (4-7) Last Admin: 11/30/18 23:52 Dose: 50 mg - Labs Labs: 11/30/18 17:30 11/30/18 17:30 - Constitutional Appears: Non-toxic, No Acute Distress - Respiratory Exam Respiratory Exam: Clear to Ausculation Bilateral, NORMAL BREATHING PATTERN - Cardiovascular Exam Cardiovascular Exam: REGULAR RHYTHM, +S1, +S2 - GI/Abdominal Exam GI & Abdominal Exam: Soft, Tenderness (RUQ mostly, mild-moderate). absent: Distended, Firm, Guarding, Rigid, Rebound - Extremities Exam Extremities Exam: absent: Pedal Edema, Tenderness - Neurological Exam Neurological Exam: Alert, Awake Assessment and Plan - Assessment and Plan (Free Text) Assessment: 63F with gastroenteritis Plan: - continue diet - continue IVF - monitor diarrhea, monitor for dehydration - serial abdominal exams Further recs discuss with Dr. Esteban Guy, PGY3
[2018-12-01] MEDS: Latanoprost 0.005% Opht SOUTION OU SCH (21:17)
[2018-12-02] MEDS: Artificial Tears Opht Soln OU SCH ×6 (01:00→22:00)
--- NOTE | 2018-12-02 01:19 | CP.PCM.PN ---
Subjective - Date & Time of Evaluation Date of Evaluation: 12/01/18 Time of Evaluation: 09:45 - Subjective Subjective: Pt seen and assessed at bedside. Reports improvement in pain, however still with occasional diarrhea episodes. The pt is on Cipro and IVF hydration. Subjective Review of Systems: Reviewed and no additional remarkable complaints except intermittent abdominal pain and diarrhea. Objective Vital Signs Stable Appears: Non-toxic, No Acute Distress. Head Exam: NORMAL INSPECTION, normocephalic. Eye Exam: Normal eye inspection, EOMI, PERRLA. Respiratory Exam: NORMAL BREATHING PATTERN, breath sounds clear to auscultation. Cardiovascular Exam: +S1, +S2. RRR. GI & Abdominal Exam: Soft, tenderness in the right upper quadrant, midly- distended. Neurological Exam: Alert, Awake, Oriented x3. Musculoskeletal Exam: 5/5 BUE strength, 5/5 BLE strength. Psychiatric exam: Normal Affect, Normal Mood, Calm and cooperative. Skin Exam: Normal Color, Warm, Dry. Assessment/Impression/Plan: 1.) Enteritis/Abdominal Pain -Currently on Cipro antibiotics. -IVF hydration + anti-emetics. -Advance diet as tolerated. -GI consult input appreciated. -Monitor for diarrhea; replace electrolytes accordingly. -Continue current treatment; if noted improvement overnight, can possibly switch to PO antibiotics in anticipation of discharge. Objective - Vital Signs/Intake and Output Vital Signs (last 24 hours): Temp Pulse Resp BP Pulse Ox 98.2 F 85 18 112/73 96 12/01/18 19:56 12/01/18 20:48 12/01/18 19:56 12/01/18 19:56 12/01/18 19:56 - Medications Medications: Current Medications Artificial Tears (Artificial Tears) 2 drop OU Q4H [facility] Last Admin: 12/01/18 21:25 Dose: 2 drop Atorvastatin Calcium (Lipitor) 20 mg PO [facility] Last Admin: 12/01/18 21:20 Dose: 20 mg Clotrimazole (Lotrimin 1% Vaginal) 1 applic VG [facility] Last Admin: 12/01/18 21:18 Dose: 1 applic Dextrose (Dextrose 50% Inj) 0 ml IV STAT PRN; Protocol PRN Reason: Hypoglycemia Protocol Dextrose (Glutose 15) 0 gm PO ONCE PRN; Protocol PRN Reason: Hypoglycemia Protocol Escitalopram Oxalate (Lexapro) 20 mg PO DAILY [facility] Last Admin: 12/01/18 09:05 Dose: 20 mg Glucagon (Glucagen Diagnostic Kit) 0 mg IM STAT PRN; Protocol PRN Reason: Hypoglycemia Protocol Home Med (Dulaglutide [Trulicity]) 1.5 mg SC QWK [facility] Ciprofloxacin (Cipro 400mg/200ml Dsw) 400 mg in 200 mls @ 200 mls/hr IVPB Q12 [facility]; Protocol Last Admin: 12/01/18 21:22 Dose: 200 mls/hr Insulin Human Regular (Humulin R) 0 units SC ACHS [facility]; Protocol Last Admin: 12/01/18 22:30 Dose: Not Given Latanoprost (Xalatan Opht) 1 drop OU HS [facility] Last Admin: 12/01/18 21:17 Dose: 1 drop Lorazepam (Ativan) 0.5 mg PO HS PRN PRN Reason: Anxiety Last Admin: 12/01/18 23:07 Dose: 0.5 mg Losartan Potassium (Cozaar) 50 mg PO DAILY [facility] Last Admin: 12/01/18 09:11 Dose: 50 mg Metformin HCl (Glucophage) 1,000 mg PO BIDWM [facility] Last Admin: 11/30/18 09:29 Dose: 1,000 mg Mirtazapine (Remeron) 15 mg PO HS [facility] Last Admin: 12/01/18 21:17 Dose: 15 mg Multivitamins/Minerals (Therapeutic-M Tab) 1 tab PO DAILY [facility] Last Admin: 12/01/18 09:06 Dose: 1 tab Pantoprazole Sodium (Protonix Ec Tab) 40 mg PO DAILY [facility] Last Admin: 12/01/18 09:06 Dose: 40 mg Tramadol HCl (Ultram) 50 mg PO Q6 PRN PRN Reason: Pain, moderate (4-7) Last Admin: 12/01/18 21:21 Dose: 50 mg - Labs Labs: 11/30/18 17:30 11/30/18 17:30 Assessment and Plan (1) Enteritis Status: Acute (2) Abdominal pain Status: Acute
--- NOTE | 2018-12-02 07:37 | CP.PCM.PN ---
<Shyam Guy D - Last Filed: 12/02/18 07:34> Subjective - Date & Time of Evaluation Date of Evaluation: 12/02/18 Time of Evaluation: 07:34 - Subjective Subjective: GI NOTE FOR DR. RYAN 63F seen and examined at bedside. Patient states pain is improving, denies nausea or vomiting. Patient tolerating diet, continues to have diarrhea. Objective - Vital Signs/Intake and Output Vital Signs (last 24 hours): Temp Pulse Resp BP Pulse Ox 97.9 F 81 16 119/71 93 L 12/02/18 05:05 12/02/18 05:05 12/02/18 05:05 12/02/18 05:05 12/02/18 05:05 - Medications Medications: Current Medications Artificial Tears (Artificial Tears) 2 drop OU Q4H [facility] Last Admin: 12/02/18 06:00 Dose: Not Given Atorvastatin Calcium (Lipitor) 20 mg PO HS [facility] Last Admin: 12/01/18 21:20 Dose: 20 mg Clotrimazole (Lotrimin 1% Vaginal) 1 applic VG HS [facility] Last Admin: 12/01/18 21:18 Dose: 1 applic Dextrose (Dextrose 50% Inj) 0 ml IV STAT PRN; Protocol PRN Reason: Hypoglycemia Protocol Dextrose (Glutose 15) 0 gm PO ONCE PRN; Protocol PRN Reason: Hypoglycemia Protocol Escitalopram Oxalate (Lexapro) 20 mg PO DAILY [facility] Last Admin: 12/01/18 09:05 Dose: 20 mg Glucagon (Glucagen Diagnostic Kit) 0 mg IM STAT PRN; Protocol PRN Reason: Hypoglycemia Protocol Home Med (Dulaglutide [Trulicity]) 1.5 mg SC QWK [facility] Ciprofloxacin (Cipro 400mg/200ml Dsw) 400 mg in 200 mls @ 200 mls/hr IVPB Q12 [facility]; Protocol Last Admin: 12/01/18 21:22 Dose: 200 mls/hr Insulin Human Regular (Humulin R) 0 units SC ACHS [facility]; Protocol Last Admin: 12/01/18 22:30 Dose: Not Given Latanoprost (Xalatan Opht) 1 drop OU HS [facility] Last Admin: 12/01/18 21:17 Dose: 1 drop Lorazepam (Ativan) 0.5 mg PO HS PRN PRN Reason: Anxiety Last Admin: 12/01/18 23:07 Dose: 0.5 mg Losartan Potassium (Cozaar) 50 mg PO DAILY [facility] Last Admin: 12/01/18 09:11 Dose: 50 mg Metformin HCl (Glucophage) 1,000 mg PO BIDWM [facility] Last Admin: 11/30/18 09:29 Dose: 1,000 mg Mirtazapine (Remeron) 15 mg PO HS [facility] Last Admin: 12/01/18 21:17 Dose: 15 mg Multivitamins/Minerals (Therapeutic-M Tab) 1 tab PO DAILY [facility] Last Admin: 12/01/18 09:06 Dose: 1 tab Pantoprazole Sodium (Protonix Ec Tab) 40 mg PO DAILY [facility] Last Admin: 12/01/18 09:06 Dose: 40 mg Tramadol HCl (Ultram) 50 mg PO Q6 PRN PRN Reason: Pain, moderate (4-7) Last Admin: 12/01/18 21:21 Dose: 50 mg - Labs Labs: 11/30/18 17:30 11/30/18 17:30 - Constitutional Appears: Non-toxic, No Acute Distress - Respiratory Exam Respiratory Exam: Clear to Ausculation Bilateral, NORMAL BREATHING PATTERN - Cardiovascular Exam Cardiovascular Exam: REGULAR RHYTHM, +S1, +S2 - GI/Abdominal Exam GI & Abdominal Exam: Soft, Tenderness (RUQ). absent: Distended, Firm, Guarding, Rigid, Rebound - Neurological Exam Neurological Exam: Alert, Awake Assessment and Plan - Assessment and Plan (Free Text) Assessment: 63F with enteritis, improving Plan: - continue diet - pain control - f/u c-diff cultures - Further recs discuss with Dr. Esteban Guy, PGY3 <Matthew Ryan - Last Filed: 12/02/18 11:28> Objective - Vital Signs/Intake and Output Vital Signs (last 24 hours): Temp Pulse Resp BP Pulse Ox 98.0 F 78 20 127/77 95 12/02/18 08:28 12/02/18 08:28 12/02/18 08:28 12/02/18 08:28 12/02/18 08:28 - Medications Medications: Current Medications Artificial Tears (Artificial Tears) 2 drop OU Q4H [facility] Last Admin: 12/02/18 09:28 Dose: 2 drop Atorvastatin Calcium (Lipitor) 20 mg PO [facility] Last Admin: 12/01/18 21:20 Dose: 20 mg Clotrimazole (Lotrimin 1% Vaginal) 1 applic VG HS [facility] Last Admin: 12/01/18 21:18 Dose: 1 applic Dextrose (Dextrose 50% Inj) 0 ml IV STAT PRN; Protocol PRN Reason: Hypoglycemia Protocol Dextrose (Glutose 15) 0 gm PO ONCE PRN; Protocol PRN Reason: Hypoglycemia Protocol Escitalopram Oxalate (Lexapro) 20 mg PO DAILY [facility] Last Admin: 12/02/18 09:29 Dose: 20 mg Glucagon (Glucagen Diagnostic Kit) 0 mg IM STAT PRN; Protocol PRN Reason: Hypoglycemia Protocol Home Med (Dulaglutide [Trulicity]) 1.5 mg SC QWK [facility] Ciprofloxacin (Cipro 400mg/200ml Dsw) 400 mg in 200 mls @ 200 mls/hr IVPB Q12 [facility]; Protocol Last Admin: 12/02/18 09:29 Dose: 200 mls/hr Insulin Human Regular (Humulin R) 0 units SC ACHS [facility]; Protocol Last Admin: 12/02/18 08:29 Dose: Not Given Latanoprost (Xalatan Opht) 1 drop OU HS [facility] Last Admin: 12/01/18 21:17 Dose: 1 drop Lorazepam (Ativan) 0.5 mg PO HS PRN PRN Reason: Anxiety Last Admin: 12/01/18 23:07 Dose: 0.5 mg Losartan Potassium (Cozaar) 50 mg PO DAILY [facility] Last Admin: 12/02/18 09:29 Dose: 50 mg Metformin HCl (Glucophage) 1,000 mg PO BIDWM [facility] Last Admin: 11/30/18 09:29 Dose: 1,000 mg Mirtazapine (Remeron) 15 mg PO HS [facility] Last Admin: 12/01/18 21:17 Dose: 15 mg Multivitamins/Minerals (Therapeutic-M Tab) 1 tab PO DAILY [facility] Last Admin: 12/02/18 09:30 Dose: 1 tab Pantoprazole Sodium (Protonix Ec Tab) 40 mg PO DAILY [facility] Last Admin: 12/02/18 09:29 Dose: 40 mg Tramadol HCl (Ultram) 50 mg PO Q6 PRN PRN Reason: Pain, moderate (4-7) Last Admin: 12/01/18 21:21 Dose: 50 mg - Labs Labs: 11/30/18 17:30 11/30/18 17:30 Assessment and Plan - Assessment and Plan (Free Text) Plan: Complete an additional 5 days of Cipro as outpatient.
[2018-12-02] MEDS: Insulin Regular 100 units/ml SC SCH ×4 (08:29→22:00)
[2018-12-02] MEDS: Pantoprazole 40 mg EC Tab PO SCH (09:29)
[2018-12-02] MEDS: Ciprofloxacin 400mg/200ml D5W 400 MG/200 ML BAG IVPB SCH ×2 (09:29→22:00)
[2018-12-02] MEDS: Multivitamin With Minerals Tab PO SCH (09:30)
[2018-12-02 14:36] LABS: BLOOD UREA NITROGEN 11 mg/dl (7-17); CALCIUM 8.8 mg/dL (8.4-10.2); GFR NON-AFRICAN AMERICAN > 60
--- NOTE | 2018-12-02 18:50 | CP.PCM.PN ---
Subjective - Date & Time of Evaluation Date of Evaluation: 12/02/18 Time of Evaluation: 11:00 - Subjective Subjective: patient seen and examined at bedside. Interim events noted diarrhea continues, abdominal pain improved denies cp/sob/fever/chills. available diagnostic data reviewed Review of Systems All systems: reviewed and no additional remarkable complaints except mentioned above Objective Vital Signs Stable - Constitutional Appears: Non-toxic, No Acute Distress Head Exam: NORMAL INSPECTION Eye Exam: Normal appearance Respiratory Exam: NORMAL BREATHING PATTERN Cardiovascular Exam: +S1, +S2 GI & Abdominal Exam: Soft Neurological Exam: Alert, Awake Psychiatric exam: Normal Affect, Normal Mood Skin Exam: Normal Color, Warm Assessment and Plan monitor vitals monitor labs Cont meds Cont tx consultants appreciated input will need PO cipro as outpatient rest of plan as ordered Objective - Vital Signs/Intake and Output Vital Signs (last 24 hours): Temp Pulse Resp BP Pulse Ox 98.3 F 106 H 20 175/99 H 95 12/02/18 15:50 12/02/18 15:50 12/02/18 15:50 12/02/18 15:50 12/02/18 15:50 - Medications Medications: Current Medications Artificial Tears (Artificial Tears) 2 drop OU Q4H [facility] Last Admin: 12/02/18 17:09 Dose: 2 drop Atorvastatin Calcium (Lipitor) 20 mg PO HS [facility] Last Admin: 12/01/18 21:20 Dose: 20 mg Clotrimazole (Lotrimin 1% Vaginal) 1 applic VG HS [facility] Last Admin: 12/01/18 21:18 Dose: 1 applic Dextrose (Dextrose 50% Inj) 0 ml IV STAT PRN; Protocol PRN Reason: Hypoglycemia Protocol Dextrose (Glutose 15) 0 gm PO ONCE PRN; Protocol PRN Reason: Hypoglycemia Protocol Escitalopram Oxalate (Lexapro) 20 mg PO DAILY [facility] Last Admin: 12/02/18 09:29 Dose: 20 mg Glucagon (Glucagen Diagnostic Kit) 0 mg IM STAT PRN; Protocol PRN Reason: Hypoglycemia Protocol Home Med (Dulaglutide [Trulicity]) 1.5 mg SC QWK [facility] Ciprofloxacin (Cipro 400mg/200ml Dsw) 400 mg in 200 mls @ 200 mls/hr IVPB Q12 [facility]; Protocol Last Admin: 12/02/18 09:29 Dose: 200 mls/hr Insulin Human Regular (Humulin R) 0 units SC ACHS [facility]; Protocol Last Admin: 12/02/18 17:09 Dose: 2 u Latanoprost (Xalatan Opht) 1 drop OU HS [facility] Last Admin: 12/01/18 21:17 Dose: 1 drop Lorazepam (Ativan) 0.5 mg PO HS PRN PRN Reason: Anxiety Last Admin: 12/01/18 23:07 Dose: 0.5 mg Losartan Potassium (Cozaar) 50 mg PO DAILY [facility] Last Admin: 12/02/18 09:29 Dose: 50 mg Metformin HCl (Glucophage) 1,000 mg PO BIDWM [facility] Last Admin: 11/30/18 09:29 Dose: 1,000 mg Mirtazapine (Remeron) 15 mg PO HS [facility] Last Admin: 12/01/18 21:17 Dose: 15 mg Multivitamins/Minerals (Therapeutic-M Tab) 1 tab PO DAILY [facility] Last Admin: 12/02/18 09:30 Dose: 1 tab Pantoprazole Sodium (Protonix Ec Tab) 40 mg PO DAILY [facility] Last Admin: 12/02/18 09:29 Dose: 40 mg Tramadol HCl (Ultram) 50 mg PO Q6 PRN PRN Reason: Pain, moderate (4-7) Last Admin: 12/01/18 21:21 Dose: 50 mg - Labs Labs: 11/30/18 17:30 12/02/18 13:21 Assessment and Plan (1) Enteritis Status: Acute (2) Diarrhea Status: Acute
[2018-12-02] MEDS: Latanoprost 0.005% Opht SOUTION OU SCH (22:12)
[2018-12-02] MEDS: SUVOREXANT 20 MG PO SCH (23:34)
[2018-12-03] MEDS: Artificial Tears Opht Soln OU SCH ×6 (00:40→21:00)
[2018-12-03] MEDS: Insulin Regular 100 units/ml SC SCH ×4 (07:06→22:00)
--- NOTE | 2018-12-03 08:18 | CP.PCM.PN ---
Subjective - Date & Time of Evaluation Date of Evaluation: 12/03/18 Time of Evaluation: 08:15 - Subjective Subjective: GI NOTE FOR DR. RYAN 63F seen and examined at bedside. Patient states she had headache which started this morning, states abdominal pain and diarrhea are both resolving. Patient tolerating diet. Negative for c-diff. Objective - Vital Signs/Intake and Output Vital Signs (last 24 hours): Temp Pulse Resp BP Pulse Ox 98 F 74 18 114/65 95 12/03/18 05:12 12/03/18 05:12 12/03/18 05:12 12/03/18 05:12 12/03/18 05:12 - Medications Medications: Current Medications Acetaminophen (Tylenol 325mg Tab) 650 mg PO Q6 PRN PRN Reason: Pain, Mild (1-3) Artificial Tears (Artificial Tears) 2 drop OU Q4H [facility] Last Admin: 12/03/18 05:26 Dose: Not Given Atorvastatin Calcium (Lipitor) 20 mg PO [facility] Last Admin: 12/02/18 22:12 Dose: 20 mg Clotrimazole (Lotrimin 1% Vaginal) 1 applic VG [facility] Last Admin: 12/02/18 22:12 Dose: 1 applic Dextrose (Dextrose 50% Inj) 0 ml IV STAT PRN; Protocol PRN Reason: Hypoglycemia Protocol Dextrose (Glutose 15) 0 gm PO ONCE PRN; Protocol PRN Reason: Hypoglycemia Protocol Furosemide (Lasix) 20 mg PO DAILY [facility] Glucagon (Glucagen Diagnostic Kit) 0 mg IM STAT PRN; Protocol PRN Reason: Hypoglycemia Protocol Home Med (Dulaglutide [Trulicity]) 1.5 mg SC QWK [facility] Home Med (Suvorexant [Belsomra]) 20 mg PO [facility] Last Admin: 12/02/18 23:34 Dose: 20 mg Home Med (Patient's Own Medication) 1 unit PO DAILY [facility] Home Med (Patient's Own Medication) 1 unit PO BID [facility] Ciprofloxacin (Cipro 400mg/200ml Dsw) 400 mg in 200 mls @ 200 mls/hr IVPB Q12 [facility]; Protocol Last Admin: 12/02/18 22:00 Dose: 200 mls/hr Insulin Human Regular (Humulin R) 0 units SC [facility]; Protocol Last Admin: 12/03/18 07:06 Dose: Not Given Latanoprost (Xalatan Opht) 1 drop OU HS [facility] Last Admin: 12/02/18 22:12 Dose: 1 drop Metformin HCl (Glucophage) 1,000 mg PO BIDWM [facility] Last Admin: 11/30/18 09:29 Dose: 1,000 mg Mirtazapine (Remeron) 30 mg PO HS [facility] Last Admin: 12/02/18 23:34 Dose: 30 mg Multivitamins/Minerals (Therapeutic-M Tab) 1 tab PO DAILY [facility] Last Admin: 12/02/18 09:30 Dose: 1 tab Pantoprazole Sodium (Protonix Ec Tab) 40 mg PO DAILY [facility] Last Admin: 12/02/18 09:29 Dose: 40 mg - Labs Labs: 11/30/18 17:30 12/02/18 13:21 - Constitutional Appears: Non-toxic, No Acute Distress - Respiratory Exam Respiratory Exam: Clear to Ausculation Bilateral, NORMAL BREATHING PATTERN - Cardiovascular Exam Cardiovascular Exam: REGULAR RHYTHM, +S1, +S2 - GI/Abdominal Exam GI & Abdominal Exam: Soft. absent: Distended, Firm, Guarding, Rigid, Tenderness, Rebound - Neurological Exam Neurological Exam: Alert, Awake Assessment and Plan - Assessment and Plan (Free Text) Assessment: 63F with gastroenteritis, improving Plan: - continue diet - continue pain control - monitor for resolved diarrhea - Further recs per Dr. Esteban Guy, PGY3
[2018-12-03] MEDS: VENLAFAXINE 150 MG PO SCH ×2 (09:05→16:59)
[2018-12-03] MEDS: Pantoprazole 40 mg EC Tab PO SCH (09:06)
[2018-12-03] MEDS: DEXILANT 60 MG PO SCH (09:06)
[2018-12-03] MEDS: Multivitamin With Minerals Tab PO SCH (09:06)
[2018-12-03] MEDS: Ciprofloxacin 400mg/200ml D5W 400 MG/200 ML BAG IVPB SCH ×2 (09:13→21:47)
[2018-12-03] MEDS: Latanoprost 0.005% Opht SOUTION OU SCH (21:51)
--- NOTE | 2018-12-03 23:06 | CP.PCM.PN ---
Subjective - Date & Time of Evaluation Date of Evaluation: 12/03/18 Time of Evaluation: 09:45 - Subjective Subjective: Pt seen and assessed at bedside. Reports improvement in pain and diarrhea. Subjective Review of Systems: Reviewed and no additional remarkable complaints except resolving abdominal pain and diarrhea. Objective Vital Signs Stable Appears: Non-toxic, No Acute Distress. Head Exam: NORMAL INSPECTION, normocephalic. Eye Exam: Normal eye inspection, EOMI, PERRLA. Respiratory Exam: NORMAL BREATHING PATTERN, breath sounds clear to auscultation. Cardiovascular Exam: +S1, +S2. RRR. GI & Abdominal Exam: Soft, mildly tender, non-distended. Neurological Exam: Alert, Awake, Oriented x3. Musculoskeletal Exam: 5/5 BUE strength, 5/5 BLE strength. Psychiatric exam: Normal Affect, Normal Mood, Calm and cooperative. Skin Exam: Normal Color, Warm, Dry. Assessment/Impression/Plan: 1.) Enteritis/Abdominal Pain -Pt medically stable for discharge, however she states wanting to stay one more night to monitor pain/diarrhea. -C. Diff (-) -Advance diet as tolerated. -PRN pain meds + anti-emetics -IVF hydration. -Continue current tx. Objective - Vital Signs/Intake and Output Vital Signs (last 24 hours): Temp Pulse Resp BP Pulse Ox 98.6 F 80 20 129/78 97 12/03/18 19:00 12/03/18 19:00 12/03/18 19:00 12/03/18 19:00 12/03/18 19:00 - Medications Medications: Current Medications Acetaminophen (Tylenol 325mg Tab) 650 mg PO Q6 PRN PRN Reason: Pain, Mild (1-3) Artificial Tears (Artificial Tears) 2 drop OU Q4H [facility] Last Admin: 12/03/18 17:01 Dose: 2 drop Atorvastatin Calcium (Lipitor) 20 mg PO HS [facility] Last Admin: 12/03/18 21:48 Dose: 20 mg Clotrimazole (Lotrimin 1% Vaginal) 1 applic VG HS [facility] Last Admin: 12/03/18 21:49 Dose: 1 applic Dextrose (Dextrose 50% Inj) 0 ml IV STAT PRN; Protocol PRN Reason: Hypoglycemia Protocol Dextrose (Glutose 15) 0 gm PO ONCE PRN; Protocol PRN Reason: Hypoglycemia Protocol Furosemide (Lasix) 20 mg PO DAILY [facility] Last Admin: 04/12/19 09:13 Dose: 20 mg Glucagon (Glucagen Diagnostic Kit) 0 mg IM STAT PRN; Protocol PRN Reason: Hypoglycemia Protocol Home Med (Dulaglutide [Trulicity]) 1.5 mg SC QWK [facility] Home Med (Suvorexant [Belsomra]) 20 mg PO HS [facility] Last Admin: 12/02/18 23:34 Dose: 20 mg Home Med (Patient's Own Medication) 1 unit PO DAILY [facility] Last Admin: 12/03/18 09:06 Dose: 1 unit Home Med (Patient's Own Medication) 1 unit PO BID [facility] Last Admin: 12/03/18 16:59 Dose: 1 unit Ciprofloxacin (Cipro 400mg/200ml Dsw) 400 mg in 200 mls @ 200 mls/hr IVPB Q12 [facility]; Protocol Last Admin: 12/03/18 21:47 Dose: 200 mls/hr Insulin Human Regular (Humulin R) 0 units SC ACHS [facility]; Protocol Last Admin: 12/03/18 16:59 Dose: 2 units Latanoprost (Xalatan Opht) 1 drop OU HS [facility] Last Admin: 12/03/18 21:51 Dose: 1 drop Metformin HCl (Glucophage) 1,000 mg PO BIDWM [facility] Last Admin: 11/30/18 09:29 Dose: 1,000 mg Mirtazapine (Remeron) 30 mg PO HS [facility] Last Admin: 12/03/18 22:14 Dose: 30 mg Multivitamins/Minerals (Therapeutic-M Tab) 1 tab PO DAILY [facility] Last Admin: 12/03/18 09:06 Dose: 1 tab Pantoprazole Sodium (Protonix Ec Tab) 40 mg PO DAILY [facility] Last Admin: 12/03/18 09:06 Dose: 40 mg Tramadol HCl (Ultram) 50 mg PO Q6 PRN PRN Reason: Pain, moderate (4-7) - Labs Labs: 11/30/18 17:30 12/02/18 13:21 Assessment and Plan (1) Enteritis Status: Acute (2) Abdominal pain Status: Acute
[2018-12-03] MEDS: SUVOREXANT 20 MG PO SCH (23:15)
[2018-12-04] MEDS: Artificial Tears Opht Soln OU SCH ×4 (01:15→13:21)
[2018-12-04 05:05] VITALS: O2SAT 96
[2018-12-04 08:12] VITALS: RESP 20
[2018-12-04] MEDS: Insulin Regular 100 units/ml SC SCH ×2 (09:29→13:21)
[2018-12-04] MEDS: VENLAFAXINE 150 MG PO SCH (09:30)
[2018-12-04] MEDS: DEXILANT 60 MG PO SCH (09:30)
[2018-12-04] MEDS: Pantoprazole 40 mg EC Tab PO SCH (09:30)
[2018-12-04] MEDS: Multivitamin With Minerals Tab PO SCH (09:31)
[2018-12-04] MEDS: Ciprofloxacin 400mg/200ml D5W 400 MG/200 ML BAG IVPB SCH (11:04)
[2018-12-04 12:09] VITALS: BP 123/71; PULSE 75; TEMP 98
--- NOTE | 2018-12-06 00:46 | CP.PCM.DIS ---
Provider - Provider Date of Admission: 12/02/18 15:01 Attending physician: Duc Topete MD Consults: 11/30/18 09:57 Gastroenterology Consult Routine Comment: Consulting Provider: Matthew Orellana Consulting Physician: Matthew Orellana Reason for Consult: enteritis, abd pain, n/v Time Spent in preparation of Discharge (in minutes): 30 Diagnosis - Discharge Diagnosis (1) Enteritis Status: Acute (2) Abdominal pain Status: Acute Hospital Course - Lab Results Lab Results: Micro Results 11/30/18 10:35 Blood Blood Culture - Final NO GROWTH AFTER 5 DAYS 11/30/18 10:35 Blood Gram Stain - Final TEST NOT PERFORMED 12/01/18 07:23 Stool Stool Culture - Final NO SALMONELLA, SHIGELLA OR CAMPYLOBACTER ISOLATED. 12/01/18 07:23 Rectum Ova and Parasite Concentrate Exam - Final 11/30/18 16:08 Urine,Clean Catch Urine Culture - Final No Growth (<1,000 CFU/ML) Most Recent Lab Values WBC 5.3 K/uL (4.8-10.8) 11/30/18 17:30 RBC 3.82 Mil/uL (3.80-5.20) 11/30/18 17:30 Hgb 11.2 g/dL (12.0-16.0) L 11/30/18 17:30 Hct 33.4 % (34.0-47.0) L 11/30/18 17:30 MCV 87.5 fl (81.0-99.0) 11/30/18 17:30 MCH 29.3 pg (27.0-31.0) 11/30/18 17:30 MCHC 33.5 g/dL (33.0-37.0) 11/30/18 17:30 RDW 14.9 % (11.5-14.5) H 11/30/18 17:30 Plt Count 299 K/uL (130-400) 11/30/18 17:30 MPV 7.9 fl (7.2-11.7) 11/30/18 17:30 Neut % (Auto) 45.3 % (50.0-75.0) L 11/30/18 17:30 Lymph % (Auto) 40.5 % (20.0-40.0) H 11/30/18 17:30 [place] % (Auto) 10.0 % (0.0-10.0) 11/30/18 17:30 Eos % (Auto) 3.7 % (0.0-4.0) 11/30/18 17:30 Baso % (Auto) 0.5 % (0.0-2.0) 11/30/18 17:30 Neut # (Auto) 2.4 K/uL (1.8-7.0) 11/30/18 17:30 Lymph # (Auto) 2.1 K/uL (1.0-4.3) 11/30/18 17:30 [place] # (Auto) 0.5 K/uL (0.0-0.8) 11/30/18 17:30 Eos # (Auto) 0.2 K/uL (0.0-0.7) 11/30/18 17:30 Baso # (Auto) 0.0 K/uL (0.0-0.2) 11/30/18 17:30 Sodium 140 mmol/l (132-148) 12/02/18 13:21 Potassium 4.0 MMOL/L (3.6-5.0) 12/02/18 13:21 Chloride 101 mmol/L (98-107) 12/02/18 13:21 Carbon Dioxide 33 mmol/L (22-30) H 12/02/18 13:21 Anion Gap 10 (10-20) 12/02/18 13:21 BUN 11 mg/dl (7-17) 12/02/18 13:21 Creatinine 0.7 mg/dl (0.7-1.2) 12/02/18 13:21 Est GFR ( Amer) > 60 12/02/18 13:21 Est GFR (Non-Af Amer) > 60 12/02/18 13:21 POC Glucose (mg/dL) 243 mg/dL (65-110) H 12/04/18 10:53 Random Glucose 111 mg/dL (65-105) H 12/02/18 13:21 Lactic Acid 2.2 mmol/L (0.7-2.1) H 11/30/18 10:30 Calcium 8.8 mg/dL (8.4-10.2) 12/02/18 13:21 Total Bilirubin 0.3 mg/dl (0.2-1.3) 11/30/18 17:30 AST 70 U/L (14-36) H D 11/30/18 17:30 ALT 124 U/L (9-52) H 11/30/18 17:30 Alkaline Phosphatase 161 U/L (38-126) H 11/30/18 17:30 Troponin I 0.0170 ng/mL (0.00-0.120) 11/30/18 04:46 Total Protein 6.8 G/DL (6.3-8.2) 11/30/18 17:30 Albumin 4.1 g/dL (3.5-5.0) 11/30/18 17:30 Globulin 2.7 gm/dL (2.2-3.9) 11/30/18 17:30 Albumin/Globulin Ratio 1.5 (1.0-2.1) 11/30/18 17:30 Lipase 139 U/L (23-300) 11/29/18 20:57 Urine Color Yellow (YELLOW) 11/29/18 19:41 Urine Clarity Cloudy (Clear) 11/29/18 19:41 Urine pH 6.0 (5.0-8.0) 11/29/18 19:41 Ur Specific [place] 1.014 (1.003-1.030) 11/29/18 19:41 Urine Protein Negative mg/dL (NEGATIVE) 11/29/18 19:41 Urine Glucose (UA) Neg mg/dL (NEGATIVE) 11/29/18 19:41 Urine Ketones Negative mg/dL (NEGATIVE) 11/29/18 19:41 Urine Blood Negative (NEGATIVE) 11/29/18 19:41 Urine Nitrate Negative (NEGATIVE) 11/29/18 19:41 Urine Bilirubin Negative (NEGATIVE) 11/29/18 19:41 Urine Urobilinogen 0.2-1.0 mg/dL (0.2-1.0) 11/29/18 19:41 Ur Leukocyte Esterase Small [place]/uL (Negative) 11/29/18 19:41 Urine RBC (Auto) 2 /hpf (0-3) 11/29/18 19:41 Urine Microscopic WBC 6 /hpf (0-5) H 11/29/18 19:41 Ur Squamous Epith Cells 3 /hpf (0-5) 11/29/18 19:41 Urine Bacteria Rare (<OCC) 11/29/18 19:41 Hyaline Casts >20 /hpf (0-2) H 11/29/18 19:41 C. difficile Ag & Toxin Negative (NEGATIVE) 12/01/18 07:23 - Hospital Course Hospital Course: Pt presented to the ED with diffuse abdominal pain. GI was consulted and she was diagnosed with enteritis. The pt was hydrated and started on Cipro. She showed notable improvement and was sent home on PO Cipro. The pt will be following up with PCP in one week. Discharge Exam - Head Exam Head Exam: ATRAUMATIC, NORMOCEPHALIC - Eye Exam Eye Exam: EOMI, Normal appearance, PERRL Pupil Exam: NORMAL ACCOMODATION - ENT Exam ENT Exam: Mucous Membranes Moist - Neck Exam Neck exam: Full Rom - Respiratory Exam Respiratory Exam: Clear to PA & Lateral, NORMAL BREATHING PATTERN - Cardiovascular Exam Cardiovascular Exam: REGULAR RHYTHM - GI/Abdominal Exam GI & Abdominal Exam: Normal Bowel Sounds, Unremarkable - Extremities Exam Extremities exam: full ROM - Back Exam Back exam: FULL ROM - Neurological Exam Neurological exam: Alert, CN II-XII Intact, Oriented x3 - Psychiatric Exam Psychiatric exam: Normal Affect, Normal Mood - Skin Skin Exam: Dry, Normal Color, Warm Discharge Plan - Discharge Medications Prescriptions: Ciprofloxacin [Cipro] 500 mg PO BID #10 tab - Follow Up Plan Condition: FAIR Disposition: HOME/ ROUTINE Instructions: Diarrhea in Adolescents and Adults, Chest Pain (DC) Additional Instructions: follow up with primary doctor in 1 week Referrals: Duc Topete MD [Staff Provider] - Matthew Orellana MD [Staff Provider] - Lenin Valenzuela MD [Medical Doctor] - Rafy Barbour APN [Nurse Practitioner] -
--- NOTE | 2018-12-11 00:24 | PQF ---
PROVIDER RESPONSE TEXT: Pt on lasix 20 mg PO daily. Diagnosis: Peripheral edema. REVIEWER QUERY TEXT: Medication Correlation for Diagnosis Your help is needed in capturing diagnoses for the corresponding medication ordered. Please clarify i n the documentation diagnoses for the following medication(s). Medication: lasix 20 mg PO daily The patient's Clinical Indicators include: --- Query created by: Noemi Zamarripa on 12/03/2018 12:11 PM Electronically signed by: Rafy Barbour APN 12/11/2018 12:21 AM
== END 2018-12-04 15:00 | disposition home or self-care (01) | DRG 392 ==
LOC: H.ER 17:51 → H.ERHOLD 11-30 00:03 → H.TEL 11-30 05:45 → OBSVTOIN 12-02 15:01
PROVIDERS: ADMIT Family Medicine; ATTEND Family Medicine
PROC: 3E0234Z Introduction of Serum, Toxoid and Vaccine into Muscle, Percutaneous Approach (ICD-10-PCS; principal; 2018-11-30)
DX: K52.9 Noninfective gastroenteritis and colitis, unspecified (principal); K76.0 Fatty (change of) liver, not elsewhere classified; E11.9 Type 2 diabetes mellitus without complications; I34.1 Nonrheumatic mitral (valve) prolapse; R51 Headache; M51.36 Other intervertebral disc degeneration, lumbar region; I10 Essential (primary) hypertension; J45.909 Unspecified asthma, uncomplicated; E78.00 Pure hypercholesterolemia, unspecified; K29.70 Gastritis, unspecified, without bleeding; D64.9 Anemia, unspecified; M19.90 Unspecified osteoarthritis, unspecified site; F32.9 Major depressive disorder, single episode, unspecified; F41.9 Anxiety disorder, unspecified; Z23 Encounter for immunization; Z79.84 Long term (current) use of oral hypoglycemic drugs; Z88.0 Allergy status to penicillin; Z88.6 Allergy status to analgesic agent; Z91.040 Latex allergy status; Z87.891 Personal history of nicotine dependence; Z90.710 Acquired absence of both cervix and uterus